=== PATIENT | male | born 1950 | race Two or more races ===

== ENCOUNTER 2017-07-27 09:46 | Inpatient (IN) | payer OTHER ==
[2017-07-27 12:24] VITALS: BMI 22.6
--- NOTE | 2017-07-27 14:40 | PN ---
[facility] Progress Note Note: pt was c/o chest pain radiating down his left arm. BP 135/80, HR 66 rr 18. Pt was at [facility] a week ago for same reason. Pt is a poor historian. Report given to Dr. Terrence Del Valle for evaluation at [facility] [place]
--- NOTE | 2017-07-27 20:46 | HP ---
Admission [facility] Chief Complaint: i want to go to rehab Allergies/Adverse Reactions: Allergies Allergy/AdvReac Type Severity Reaction Status Date / Time No Known Allergies Allergy Verified 07/27/17 15:05 History of Present Illness: 66 years old male with long history of opiate nicotine dependence has arthritis gerd hypertension bph, hyperlipidemia on methadone maintenance program 70 mg po daily ambulate with cane x 1-2 years due to weakness of left leg is admitted to rehab Exam Limitations: No Limitations - Ebola screening Have you traveled outside of the country in the last 21 days: No Have you had contact with anyone from an Ebola affected area: No Have you been sick,other than usual withdrawal symptoms: No Do you have a fever: No - Review of Systems Constitutional: Loss of Appetite, Unintentional Wgt. Loss EENT: reports: No Symptoms Reported Respiratory: reports: Cough, SOB with Exertion Cardiac: reports: Other (chronic chest muscle wall spasm) GI: reports: No Symptoms Reported : reports: Urgency Musculoskeletal: reports: Back Pain (x months from chest wall to back muscle spasm) Integumentary: reports: Change in Color (both inner elbows) Neuro: reports: No Symptoms reported Endocrine: reports: No Symptoms Reported Hematology: reports: No Symptoms Reported Psychiatric: reports: Judgement Intact, Mood/Affect Appropiate, Orientated x3 Other Systems: Reviewed and Negative Patient History - Patient Medical History Hx Anemia: No Hx Asthma: No Hx Chronic Obstructive Pulmonary Disease (COPD): No Hx Cancer: No Hx Cardiac Disorders: No Hx Congestive Heart Failure: No Hx Hypertension: Yes Hx Hypercholesterolemia: No Hx Pacemaker: No HX Cerebrovascular Accident: No Hx Seizures: No Hx Dementia: No Hx Diabetes: No Hx Gastrointestinal Disorders: Yes (GERD) Hx Liver Disease: No Hx Genitourinary Disorders: No Hx Sexually Transmitted Disorders: No Hx Renal Disease (ESRD): No Hx Thyroid Disease: No Hx Human Immunodeficiency Virus (HIV): No Hx Hepatitis C: No Hx Depression: No Hx Suicide Attempt: No Hx Bipolar Disorder: No Hx Schizophrenia: No - Patient Surgical History Past Surgical History: Yes Hx Cholecystectomy: Yes (2006) Hx Orthopedic Surgery: Yes (bone graft 2002 left hip to left jaw) Anesthesia Reaction: No - PPD History Previous Implant?: Yes Documented Results: Negative w/o proof Implanted On Prior [facility] Admission?: No PPD to be Administered?: Yes - Smoking Cessation Smoking history: Current every day smoker Have you smoked in the past 12 months: Yes Aproximately how many cigarettes per day: 1 Cigars Per Day: 0 Hx Chewing Tobacco Use: No Initiated information on smoking cessation: Yes 'Breaking Loose' booklet given: 07/27/17 - Substance & Tx. History Hx Alcohol Use: No Hx Substance Use: Yes Substance Use Type: Heroin Hx Substance Use Treatment: Yes (2014) - Substances Abused Heroin Route: Injection Frequency: Daily Amount used: 1 bag Age of first use: 16 Date of Last Use: 07/25/17 Family Disease History - Family Disease History Family Disease History: Other: Father (), Mother (), Brother ( /hiv) Admission Physical Exam S - Vital Signs Vital Signs: Vital Signs - 24 hr 07/27/17 12:14 Temperature 96.8 F L Pulse Rate 66 Respiratory 20 Rate Blood Pressure 135/80 - Physical General Appearance: Yes: No Apparent Distress, Appropriately Dressed, Thin HEENTM: Yes: Hearing grossly Normal, Normal ENT Inspection, Normocephalic, Normal Voice Respiratory: Yes: Chest Non-Tender, Lungs Clear, Normal Breath Sounds, No Respiratory Distress, No Accessory Muscle Use Neck: Yes: Supple, Trachea in good position Breast: Yes: Breasts Symetrical Cardiology: Yes: Regular Rhythm, Regular Rate, S1, S2 Abdominal: Yes: Normal Bowel Sounds, Non Tender, Soft Genitourinary: Yes: Uregency Back: Yes: Normal Inspection Musculoskeletal: Yes: Gait Steady (cane), Back pain Extremities: Yes: Non-Tender, Other (iv heroin both upper extremity) Neurological: Yes: Fully Oriented, Alert, Motor Strength 5/5, Normal Mood/Affect , Normal Response Integumentary: Yes: Warm, Track Narayanan Lymphatic: Yes: Within Normal Limits - Diagnostic (1) Methadone maintenance therapy patient Current Visit: Yes Status: Chronic Comment: 70 mg verificatin pending (2) Arthritis Current Visit: Yes Status: Chronic (3) GERD (gastroesophageal reflux disease) Current Visit: Yes Status: Chronic Qualifiers: Esophagitis presence: without esophagitis Qualified Code(s): K21.9 - Gastro -esophageal reflux disease without esophagitis (4) Use of cane as ambulatory aid Current Visit: Yes Status: Chronic (5) Weight loss Current Visit: Yes Status: Acute (6) Muscle spasm Current Visit: Yes Status: Chronic (7) Chronic back pain Current Visit: Yes Status: Chronic Qualifiers: Back pain location: low back pain Back pain laterality: bilateral Sciatica presence: without sciatica Qualified Code(s): M54.5 - Low back pain; G89.29 - Other chronic pain; G89.29 - Other chronic pain (8) Nicotine dependence Current Visit: Yes Status: Acute Qualifiers: Nicotine product type: cigarettes Substance use status: in withdrawal Qualified Code(s): F17.213 - Nicotine dependence, cigarettes, with withdrawal (9) Hypertension Current Visit: Yes Status: Chronic Qualifiers: Hypertension type: essential hypertension Qualified Code(s): I10 - Essential (primary) hypertension Cleared for Admission [facility] - Detox or Rehab [facility] Level of Care: Observation Bed Detox Regimen/Protocol: Not Applicable Claeared for Rehab Admission: Yes [facility] Breath Alcohol Content Breath Alcohol Content: 0 Vital Signs - Vital Signs Vital Signs Refused: No Urine Drug Screen - Control Is Test Valid: Yes - Results Drug Screen Negative: No Urine Drug Screen Results: BZO-Benzodiazepines, MTD-Methadone Inpatient Rehab Admission - Initial Determination Are CD services needed?: Yes Free of communicable disease: Yes Not in need of hospitalization: Yes - Rehab Admission Criteria Previous failed treatment: Yes Poor recovery environment: Yes Comorbidities: Yes Lacks judgement: No Patient is meeting Inpatient Rehab admission criteria:: Yes
[2017-07-27] MEDS ORDERED: MENTHOL/PHENOL 1 EACH UD MM PRN (20:53)
[2017-07-27] MEDS ORDERED: guaiFENesin/D-METHORPHAN HB 10 ML UNIT-DOSE CUPS PO PRN (20:53)
[2017-07-27] MEDS ORDERED: LOPERAMIDE HCL 2 MG CAPSULE PO PRN (20:53)
[2017-07-27] MEDS ORDERED: MAGNESIUM CITRATE 300 ML BOTTLE PO PRN (20:53)
[2017-07-27] MEDS ORDERED: P-EPHED 60MG/TRIPROLIDI 2.5MG TABLET PO PRN (20:53)
[2017-07-27] MEDS ORDERED: NICOTINE POLACRILEX 2 MG GUM BC PRN (20:53)
[2017-07-27] MEDS ORDERED: MAG HYDROX/AL HYDROX/SIMETH 30 ML UNIT-DOSE CUP PO PRN (20:53)
[2017-07-27 23:15] LABS: URINE APPEARANCE CLEAR; URINE BILIRUBIN NEGATIVE (NEGATIVE); URINE BLOOD NEGATIVE (NEGATIVE); URINE COLOR YELLOW; URINE GLUCOSE (UA) NEGATIVE (NEGATIVE); URINE KETONE NEGATIVE (NEGATIVE); URINE NITRITE NEGATIVE (NEGATIVE); URINE UROBILINOGEN NEGATIVE mg/dL (0.2-1.0)
[2017-07-27 23:16] LABS: URINE PROTEIN 2+ (NEGATIVE)
[2017-07-27 23:18] LABS: EPI CELLS RARE /HPF (FEW); URINE MUCUS RARE
[2017-07-27] MEDS: GABAPENTIN 300 MG CAPSULE (FP) PO SCH (23:21)
[2017-07-27] MEDS: NAPROXEN 500 MG TABLET (FP) PO PRN (23:21)
[2017-07-27] MEDS: TAMSULOSIN HCL 0.4 MG CAP.ER.24H (FP) PO SCH (23:22)
[2017-07-27] MEDS: BACLOFEN 10 MG TABLET (FP) PO SCH ×2 (23:22)
[2017-07-27] MEDS: RANITIDINE HCL 150 MG TABLET (FP) PO SCH ×2 (23:22→23:23)
[2017-07-27] MEDS: THIAMINE HCL 100 MG TABLET (FP) PO SCH (23:22)
[2017-07-27] MEDS ORDERED: TUBERCULIN PPD 5 TU/0.1ML VIAL ID ONE (23:26)
[2017-07-28] MEDS: GABAPENTIN 300 MG CAPSULE (FP) PO SCH ×3 (06:03→21:06)
[2017-07-28] MEDS: BACLOFEN 10 MG TABLET (FP) PO SCH ×3 (06:03→21:06)
--- NOTE | 2017-07-28 06:07 | HP ---
Psychiatrist Admission - Data Date of interview: 07/28/17 Admission source: [facility] Identifying data: This is the first [facility] admission for this 66 years old single male, father of a 45 years old daughter, unemployed on SSD, domiciled living with his sister Medical History: Significant for hypertension, hyperlipidemia, arthritis, GERD, BPH and history of surgery for bone graft left hip to left jaw. Patient is on methadone 70 mg/day. Smokes 1 cigarette daily Psychiatric History: Denies history of previous psychiatric treatment. However, he is prescribed Remeron for sleep and Ativan for anxiety by his primary care physician Physical/Sexual Abuse/Trauma History: Denies history of verbal, physical or sexual abuse as well as DV relationship Additional Comment: Reports history of 3-4 previous arrests including one felony conviction. Denies being on parole/probation at present Vital Signs: Vital Signs - 24 hr 07/27/17 07/27/17 07/28/17 12:14 22:47 00:30 Temperature 96.8 F L Pulse Rate 66 58 L Respiratory 20 18 18 Rate Blood Pressure 135/80 140/71 07/28/17 03:30 Temperature Pulse Rate Respiratory 18 Rate Blood Pressure Allergies/Adverse Reactions: Allergies Allergy/AdvReac Type Severity Reaction Status Date / Time No Known Allergies Allergy Verified 07/27/17 15:05 Date of last physical exam: 07/27/17 Concur with the findings of this exam: Yes - Substance Abuse/Tx History Hx Alcohol Use: Yes Hx Substance Use: Yes Substance Use Type: Heroin (Started using heroin at age 16, consumes one bag daily. Last used on 07/25/17) Hx Substance Use Treatment: Yes (Currently atteds [facility]. 3 previous inpt detox. First inpt rehab) Mental Status Exam - Mental Status Exam Alert and Oriented to: Time, Place, Person Cognitive Function: Fair Patient Appearance: Well Groomed Mood: Depressed (mildly) Affect: Normal Range Patient Behavior: Cooperative Speech Pattern: Clear Voice Loudness: Normal Thought Process: Intact, Goal Oriented Hallucinations: Denies Suicidal Ideation: Denies Homicidal Ideation: Denies Insight/Judgement: Fair Sleep: Poorly Appetite: Poor Muscle strength/Tone: Normal Gait/Station: Normal Psychiatric Findings - Problem List ([place] 1, 2,3) (1) Opioid dependence Current Visit: Yes Status: Acute (2) Opioid dependence on agonist therapy Current Visit: Yes Status: Acute (3) Nicotine dependence Current Visit: Yes Status: Acute Qualifiers: Nicotine product type: cigarettes Substance use status: in withdrawal Qualified Code(s): F17.213 - Nicotine dependence, cigarettes, with withdrawal (4) Substance induced mood disorder Current Visit: Yes Status: Acute (5) Substance-induced sleep disorder Current Visit: Yes Status: Acute (6) Arthritis Current Visit: Yes Status: Chronic (7) Chronic back pain Current Visit: Yes Status: Chronic Qualifiers: Back pain location: low back pain Back pain laterality: bilateral Sciatica presence: without sciatica Qualified Code(s): M54.5 - Low back pain; G89.29 - Other chronic pain; G89.29 - Other chronic pain (8) GERD (gastroesophageal reflux disease) Current Visit: Yes Status: Chronic Qualifiers: Esophagitis presence: without esophagitis Qualified Code(s): K21.9 - Gastro -esophageal reflux disease without esophagitis (9) Hypertension Current Visit: Yes Status: Chronic Qualifiers: Hypertension type: essential hypertension Qualified Code(s): I10 - Essential (primary) hypertension - Initial Treatment Plan Initial Treatment Plan: 1) Continue Remeron 45 mg po HS for insomnia. 2) Monitor progress
[2017-07-28] MEDS: ACETAMINOPHEN 325 MG TABLET (FP) PO PRN ×2 (06:35→21:07)
[2017-07-28] MEDS ORDERED: METHADONE HCL 10 MG TABLET PO SCH (08:00)
[2017-07-28] MEDS ORDERED: METHADONE 40 MG, METHADONE 30 MG PO ONE (08:30)
[2017-07-28] MEDS ORDERED: METHADONE HCL 40 MG DISPERSABLE TABLET ONE (08:34)
[2017-07-28] MEDS ORDERED: METHADONE HCL 10 MG TABLET ONE (08:34)
[2017-07-28] MEDS: RANITIDINE HCL 150 MG TABLET (FP) PO SCH ×2 (09:35→21:06)
[2017-07-28] MEDS: amLODIPine BESYLATE 5 MG TABLET (FP) PO SCH (09:35)
[2017-07-28] MEDS: ATORVASTATIN CA 40 MG TABLET (FP) PO SCH (09:35)
[2017-07-28] MEDS: ASPIRIN 81 MG CHEWABLE TABLETS PO SCH (09:35)
[2017-07-28] MEDS: NICOTINE 14 MG/24 HOURS TOPICAL PATCH TD SCH (09:35)
[2017-07-28] MEDS: PRENATAL VITAMINS W/ FOLIC ACID TABLET (FP) PO SCH (09:35)
[2017-07-28] MEDS: NAPROXEN 500 MG TABLET (FP) PO PRN (09:36)
[2017-07-28 11:02] LABS: URINE LEUK ESTERASE Negative (NEGATIVE)
[2017-07-28 14:01] LABS: HEMATOCRIT 34.8 % (35.4-49); HEMOGLOBIN 11.3 GM/dL (11.7-16.9); MCH 31.4 pg (25.7-33.7); MCHC 32.6 g/dl (32.0-35.9); MEAN CELL VOLUME 96.5 fl (80-96); MEAN PLT VOLUME 10.7 fl (7.5-11.1); PLATELET COUNT 62 K/MM3 (134-434); RBC 3.61 M/mm3 (4.00-5.60); RDW 16.6 % (11.9-15.9); WHITE BLOOD COUNT 3.6 K/mm3 (4.0-10.0)
[2017-07-28 14:15] LABS: ANION GAP 8 (8-16); BILIRUBIN,TOTAL 0.4 mg/dL (0.2-1.0); CALCIUM 10.2 mg/dL (8.5-10.1); CHLORIDE 106 mmol/L (98-107); CO2 30 mmol/L (21-32); CREATININE 1.1 mg/dL (0.7-1.3); POTASSIUM 3.8 mmol/L (3.5-5.1); SGPT/ALT 20 U/L (12-78); SODIUM 144 mmol/L (136-145)
[2017-07-28 14:21] LABS: ALBUMIN 3.7 g/dl (3.4-5.0); ALK PHOS 83 U/L (45-117); BLOOD UREA NITROGEN 17 mg/dL (7-18); GLUCOSE,RANDOM 119 mg/dL (74-106); SGOT/AST 21 U/L (15-37); TOT PROT 7.2 g/dl (6.4-8.2)
[2017-07-28] MEDS: TAMSULOSIN HCL 0.4 MG CAP.ER.24H (FP) PO SCH (21:06)
[2017-07-28] MEDS: THIAMINE HCL 100 MG TABLET (FP) PO SCH (21:06)
[2017-07-28] MEDS: MIRTAZAPINE 15 MG TABLET (FP) PO SCH (22:17)
[2017-07-29] MEDS: ACETAMINOPHEN 325 MG TABLET (FP) PO PRN ×3 (02:20→21:08)
[2017-07-29] MEDS ORDERED: METHADONE HCL 40 MG DISPERSABLE TABLET ONE (04:01)
[2017-07-29] MEDS ORDERED: METHADONE HCL 10 MG TABLET ONE (04:01)
[2017-07-29] MEDS: BACLOFEN 10 MG TABLET (FP) PO SCH ×3 (06:31→21:06)
[2017-07-29] MEDS: GABAPENTIN 300 MG CAPSULE (FP) PO SCH ×3 (06:32→21:09)
[2017-07-29] MEDS: METHADONE 40 MG, METHADONE 30 MG PO SCH (06:32)
[2017-07-29] MEDS: PRENATAL VITAMINS W/ FOLIC ACID TABLET (FP) PO SCH (09:40)
[2017-07-29] MEDS: ATORVASTATIN CA 40 MG TABLET (FP) PO SCH (09:41)
[2017-07-29] MEDS: RANITIDINE HCL 150 MG TABLET (FP) PO SCH ×2 (09:41→21:05)
[2017-07-29] MEDS: NICOTINE 14 MG/24 HOURS TOPICAL PATCH TD SCH (09:41)
[2017-07-29] MEDS: ASPIRIN 81 MG CHEWABLE TABLETS PO SCH (09:41)
[2017-07-29] MEDS: amLODIPine BESYLATE 5 MG TABLET (FP) PO SCH (09:41)
[2017-07-29] MEDS: NAPROXEN 500 MG TABLET (FP) PO PRN (09:42)
[2017-07-29] MEDS: TAMSULOSIN HCL 0.4 MG CAP.ER.24H (FP) PO SCH (21:05)
[2017-07-29] MEDS: THIAMINE HCL 100 MG TABLET (FP) PO SCH (21:05)
[2017-07-29] MEDS: MIRTAZAPINE 15 MG TABLET (FP) PO SCH (21:06)
[2017-07-30] MEDS ORDERED: METHADONE HCL 40 MG DISPERSABLE TABLET ONE (02:39)
[2017-07-30] MEDS ORDERED: METHADONE HCL 10 MG TABLET ONE (02:39)
[2017-07-30] MEDS: BACLOFEN 10 MG TABLET (FP) PO SCH ×3 (06:10→21:37)
[2017-07-30] MEDS: GABAPENTIN 300 MG CAPSULE (FP) PO SCH ×3 (06:10→21:37)
[2017-07-30] MEDS: METHADONE 40 MG, METHADONE 30 MG PO SCH (06:10)
[2017-07-30] MEDS: PRENATAL VITAMINS W/ FOLIC ACID TABLET (FP) PO SCH (09:39)
[2017-07-30] MEDS: RANITIDINE HCL 150 MG TABLET (FP) PO SCH ×2 (09:39→21:37)
[2017-07-30] MEDS: amLODIPine BESYLATE 5 MG TABLET (FP) PO SCH (09:40)
[2017-07-30] MEDS: NICOTINE 14 MG/24 HOURS TOPICAL PATCH TD SCH (09:40)
[2017-07-30] MEDS: ASPIRIN 81 MG CHEWABLE TABLETS PO SCH (09:40)
[2017-07-30] MEDS: ATORVASTATIN CA 40 MG TABLET (FP) PO SCH (09:40)
[2017-07-30] MEDS: ACETAMINOPHEN 325 MG TABLET (FP) PO PRN (09:41)
[2017-07-30] MEDS: MIRTAZAPINE 15 MG TABLET (FP) PO SCH (21:37)
[2017-07-30] MEDS: TAMSULOSIN HCL 0.4 MG CAP.ER.24H (FP) PO SCH (21:37)
[2017-07-30] MEDS: THIAMINE HCL 100 MG TABLET (FP) PO SCH (21:37)
[2017-07-31] MEDS ORDERED: METHADONE HCL 10 MG TABLET ONE (04:48)
[2017-07-31] MEDS ORDERED: METHADONE HCL 40 MG DISPERSABLE TABLET ONE (04:48)
[2017-07-31] MEDS: GABAPENTIN 300 MG CAPSULE (FP) PO SCH ×3 (05:58→21:06)
[2017-07-31] MEDS: METHADONE 40 MG, METHADONE 30 MG PO SCH (05:58)
[2017-07-31] MEDS: BACLOFEN 10 MG TABLET (FP) PO SCH ×3 (05:58→21:07)
--- NOTE | 2017-07-31 06:44 | EKG ---
Test Reason : Blood Pressure : / mmHG Vent. Rate : 059 BPM Atrial Rate : 059 BPM P-R Int : 168 ms QRS Dur : 088 ms QT Int : 454 ms P-R-T Axes : 052 063 052 degrees QTc Int : 449 ms SINUS BRADYCARDIA OTHERWISE NORMAL ECG WHEN COMPARED WITH ECG OF 27-JUL-2017 15:29, NO SIGNIFICANT CHANGE WAS FOUND Confirmed by MD Andrade Daniel ([id number]) on 07/28/2017 3:00:51 PM Also confirmed by MD Andrade Daniel [id number]), sports editor MARCIO GONZALEZ ([id number]) on 07/31/2017 6:43:42 AM Referred By: Confirmed By:Marcio Andrade MD
[2017-07-31] MEDS: PRENATAL VITAMINS W/ FOLIC ACID TABLET (FP) PO SCH (09:40)
[2017-07-31] MEDS: ASPIRIN 81 MG CHEWABLE TABLETS PO SCH (09:40)
[2017-07-31] MEDS: amLODIPine BESYLATE 5 MG TABLET (FP) PO SCH (09:40)
[2017-07-31] MEDS: ATORVASTATIN CA 40 MG TABLET (FP) PO SCH (09:40)
[2017-07-31] MEDS: NICOTINE 14 MG/24 HOURS TOPICAL PATCH TD SCH (09:41)
[2017-07-31] MEDS: RANITIDINE HCL 150 MG TABLET (FP) PO SCH ×2 (09:42→21:07)
--- NOTE | 2017-07-31 13:50 | PN ---
[facility] Progress Note (SOAP) Subjective: c/o sore thorat, chest pain same as when admitted , congestion, cough, fatigue Objective: 07/31/17 13:48 Vital Signs - 24 hr 07/31/17 07/31/17 07/31/17 00:30 03:30 06:50 Temperature 98.3 F Pulse Rate 66 Respiratory 18 18 16 Rate Blood Pressure 138/80 07/31/17 10:00 Temperature Pulse Rate 61 Respiratory 18 Rate Blood Pressure 124/74 no fever rigors or chilss, mild erytehma throat, no LN Laboratory Tests 07/27/17 07/28/17 07/28/17 23:00 10:40 10:40 WBC 3.6 L RBC 3.61 L Hgb 11.3 L D Hct 34.8 L D MCV 96.5 H MCH 31.4 MCHC 32.6 RDW 16.6 H Plt Count 62 L MPV 10.7 D Sodium 144 Potassium 3.8 Chloride 106 Carbon Dioxide 30 Anion Gap 8 BUN 17 Creatinine 1.1 D Creat Clearance w eGFR > 60 Random Glucose 119 H D Calcium 10.2 H Total Bilirubin 0.4 AST 21 ALT 20 Alkaline Phosphatase 83 Total Protein 7.2 Albumin 3.7 Urine Color Yellow Urine Appearance Clear Urine pH 5.0 Ur Specific [place] 1.028 Urine Protein 2+ H Urine Glucose (UA) Negative Urine Ketones Negative Urine Blood Negative Urine Nitrite Negative Urine Bilirubin Negative Urine Urobilinogen Negative Ur Leukocyte Esterase Negative Urine WBC (Auto) 1 Urine RBC (Auto) 1 Ur Epithelial Cells Rare Urine Mucus Rare RPR Titer 07/28/17 10:40 WBC RBC Hgb Hct MCV MCH MCHC RDW Plt Count MPV Sodium Potassium Chloride Carbon Dioxide Anion Gap BUN Creatinine Creat Clearance w eGFR Random Glucose Calcium Total Bilirubin AST ALT Alkaline Phosphatase Total Protein Albumin Urine Color Urine Appearance Urine pH Ur Specific [place] Urine Protein Urine Glucose (UA) Urine Ketones Urine Blood Urine Nitrite Urine Bilirubin Urine Urobilinogen Ur Leukocyte Esterase Urine WBC (Auto) Urine RBC (Auto) Ur Epithelial Cells Urine Mucus RPR Titer Nonreactive mild macrocytic anemia, elevated glucose Assessment: 07/31/17 13:49 urti/viral phryngitis with atypical chest pain, dnaprosyn, magic mouth wash, bedrest, fluids.
[2017-07-31] MEDS ORDERED: PANTOPRAZOLE 40 MG TABLET (FP) PO SCH (14:00)
[2017-07-31] MEDS: NAPROXEN 500 MG TABLET (FP) PO SCH ×2 (15:14→21:07)
[2017-07-31] MEDS: MAG HYDROX/ALH/SMC/DPHA/LIDO 240 ML MOUTHWASH MM SCH ×2 (17:06→23:43)
[2017-07-31] MEDS: THIAMINE HCL 100 MG TABLET (FP) PO SCH (21:06)
[2017-07-31] MEDS: MIRTAZAPINE 15 MG TABLET (FP) PO SCH (21:06)
[2017-07-31] MEDS: TAMSULOSIN HCL 0.4 MG CAP.ER.24H (FP) PO SCH (21:07)
[2017-08-01] MEDS ORDERED: METHADONE HCL 40 MG DISPERSABLE TABLET ONE (04:10)
[2017-08-01] MEDS ORDERED: METHADONE HCL 10 MG TABLET ONE (04:10)
[2017-08-01] MEDS: GABAPENTIN 300 MG CAPSULE (FP) PO SCH ×3 (06:33→21:09)
[2017-08-01] MEDS: BACLOFEN 10 MG TABLET (FP) PO SCH ×3 (06:33→21:09)
[2017-08-01] MEDS: METHADONE 40 MG, METHADONE 30 MG PO SCH (06:33)
[2017-08-01] MEDS: MAG HYDROX/ALH/SMC/DPHA/LIDO 240 ML MOUTHWASH MM SCH ×4 (06:33→23:49)
[2017-08-01] MEDS: NAPROXEN 500 MG TABLET (FP) PO SCH ×2 (10:25→21:09)
[2017-08-01] MEDS: PRENATAL VITAMINS W/ FOLIC ACID TABLET (FP) PO SCH (10:25)
[2017-08-01] MEDS: ATORVASTATIN CA 40 MG TABLET (FP) PO SCH (10:25)
[2017-08-01] MEDS: RANITIDINE HCL 150 MG TABLET (FP) PO SCH ×2 (10:25→21:08)
[2017-08-01] MEDS: ASPIRIN 81 MG CHEWABLE TABLETS PO SCH (10:25)
[2017-08-01] MEDS: NICOTINE 14 MG/24 HOURS TOPICAL PATCH TD SCH (10:25)
[2017-08-01] MEDS: amLODIPine BESYLATE 5 MG TABLET (FP) PO SCH (10:25)
[2017-08-01] MEDS: MIRTAZAPINE 15 MG TABLET (FP) PO SCH (21:08)
[2017-08-01] MEDS: TAMSULOSIN HCL 0.4 MG CAP.ER.24H (FP) PO SCH (21:09)
[2017-08-01] MEDS: THIAMINE HCL 100 MG TABLET (FP) PO SCH (21:09)
[2017-08-02] MEDS ORDERED: METHADONE HCL 40 MG DISPERSABLE TABLET ONE (04:06)
[2017-08-02] MEDS ORDERED: METHADONE HCL 10 MG TABLET ONE (04:06)
[2017-08-02] MEDS: MAG HYDROX/ALH/SMC/DPHA/LIDO 240 ML MOUTHWASH MM SCH ×4 (06:01→23:03)
[2017-08-02] MEDS: BACLOFEN 10 MG TABLET (FP) PO SCH ×3 (06:01→21:02)
[2017-08-02] MEDS: GABAPENTIN 300 MG CAPSULE (FP) PO SCH ×3 (06:01→21:02)
[2017-08-02] MEDS: METHADONE 40 MG, METHADONE 30 MG PO SCH (06:01)
[2017-08-02] MEDS: NICOTINE 14 MG/24 HOURS TOPICAL PATCH TD SCH (09:42)
[2017-08-02] MEDS: ASPIRIN 81 MG CHEWABLE TABLETS PO SCH (09:43)
[2017-08-02] MEDS: PRENATAL VITAMINS W/ FOLIC ACID TABLET (FP) PO SCH (09:43)
[2017-08-02] MEDS: ATORVASTATIN CA 40 MG TABLET (FP) PO SCH (09:43)
[2017-08-02] MEDS: amLODIPine BESYLATE 5 MG TABLET (FP) PO SCH (09:43)
[2017-08-02] MEDS: NAPROXEN 500 MG TABLET (FP) PO SCH ×2 (09:43→21:02)
[2017-08-02] MEDS: RANITIDINE HCL 150 MG TABLET (FP) PO SCH ×2 (09:43→21:02)
[2017-08-02] MEDS: THIAMINE HCL 100 MG TABLET (FP) PO SCH (21:02)
[2017-08-02] MEDS: TAMSULOSIN HCL 0.4 MG CAP.ER.24H (FP) PO SCH (21:02)
[2017-08-02] MEDS: MIRTAZAPINE 15 MG TABLET (FP) PO SCH (21:02)
[2017-08-03] MEDS ORDERED: METHADONE HCL 40 MG DISPERSABLE TABLET ONE (03:15)
[2017-08-03] MEDS ORDERED: METHADONE HCL 10 MG TABLET ONE (03:15)
[2017-08-03] MEDS: METHADONE 40 MG, METHADONE 30 MG PO SCH (06:56)
[2017-08-03] MEDS: BACLOFEN 10 MG TABLET (FP) PO SCH ×3 (06:57→21:02)
[2017-08-03] MEDS: GABAPENTIN 300 MG CAPSULE (FP) PO SCH ×3 (06:57→21:02)
[2017-08-03] MEDS: MAG HYDROX/ALH/SMC/DPHA/LIDO 240 ML MOUTHWASH MM SCH ×4 (06:58→23:59)
[2017-08-03] MEDS: ASPIRIN 81 MG CHEWABLE TABLETS PO SCH (09:31)
[2017-08-03] MEDS: NAPROXEN 500 MG TABLET (FP) PO SCH ×2 (09:31→21:02)
[2017-08-03] MEDS: PRENATAL VITAMINS W/ FOLIC ACID TABLET (FP) PO SCH (09:31)
[2017-08-03] MEDS: ATORVASTATIN CA 40 MG TABLET (FP) PO SCH (09:31)
[2017-08-03] MEDS: amLODIPine BESYLATE 5 MG TABLET (FP) PO SCH (09:31)
[2017-08-03] MEDS: RANITIDINE HCL 150 MG TABLET (FP) PO SCH ×2 (09:31→21:02)
[2017-08-03] MEDS: NICOTINE 14 MG/24 HOURS TOPICAL PATCH TD SCH (09:32)
[2017-08-03] MEDS: CLOTRIMAZOLE 10 MG TROCHE (FP) PO SCH ×2 (17:03→21:01)
[2017-08-03] MEDS: THIAMINE HCL 100 MG TABLET (FP) PO SCH (21:01)
[2017-08-03] MEDS: MIRTAZAPINE 15 MG TABLET (FP) PO SCH (21:01)
[2017-08-03] MEDS: TAMSULOSIN HCL 0.4 MG CAP.ER.24H (FP) PO SCH (21:02)
[2017-08-04] MEDS ORDERED: METHADONE HCL 40 MG DISPERSABLE TABLET ONE (04:14)
[2017-08-04] MEDS ORDERED: METHADONE HCL 10 MG TABLET ONE (04:14)
[2017-08-04] MEDS: GABAPENTIN 300 MG CAPSULE (FP) PO SCH ×3 (06:04→21:05)
[2017-08-04] MEDS: CLOTRIMAZOLE 10 MG TROCHE (FP) PO SCH ×5 (06:04→22:19)
[2017-08-04] MEDS: METHADONE 40 MG, METHADONE 30 MG PO SCH (06:04)
[2017-08-04] MEDS: BACLOFEN 10 MG TABLET (FP) PO SCH ×3 (06:04→21:05)
[2017-08-04] MEDS: MAG HYDROX/ALH/SMC/DPHA/LIDO 240 ML MOUTHWASH MM SCH ×3 (06:11→18:07)
[2017-08-04] MEDS: PRENATAL VITAMINS W/ FOLIC ACID TABLET (FP) PO SCH (09:27)
[2017-08-04] MEDS: ASPIRIN 81 MG CHEWABLE TABLETS PO SCH (09:27)
[2017-08-04] MEDS: RANITIDINE HCL 150 MG TABLET (FP) PO SCH ×2 (09:28→21:05)
[2017-08-04] MEDS: amLODIPine BESYLATE 5 MG TABLET (FP) PO SCH (09:28)
[2017-08-04] MEDS: ATORVASTATIN CA 40 MG TABLET (FP) PO SCH (09:28)
[2017-08-04] MEDS: NAPROXEN 500 MG TABLET (FP) PO SCH ×2 (09:28→21:05)
[2017-08-04] MEDS: NICOTINE 14 MG/24 HOURS TOPICAL PATCH TD SCH (09:29)
[2017-08-04] MEDS: TAMSULOSIN HCL 0.4 MG CAP.ER.24H (FP) PO SCH (21:04)
[2017-08-04] MEDS: THIAMINE HCL 100 MG TABLET (FP) PO SCH (21:05)
[2017-08-04] MEDS: MIRTAZAPINE 15 MG TABLET (FP) PO SCH (21:05)
[2017-08-05] MEDS ORDERED: METHADONE HCL 10 MG TABLET ONE (04:27)
[2017-08-05] MEDS ORDERED: METHADONE HCL 40 MG DISPERSABLE TABLET ONE (04:27)
[2017-08-05] MEDS: BACLOFEN 10 MG TABLET (FP) PO SCH ×3 (06:02→21:10)
[2017-08-05] MEDS: METHADONE 40 MG, METHADONE 30 MG PO SCH (06:02)
[2017-08-05] MEDS: GABAPENTIN 300 MG CAPSULE (FP) PO SCH ×3 (06:02→21:10)
[2017-08-05] MEDS: MAG HYDROX/ALH/SMC/DPHA/LIDO 240 ML MOUTHWASH MM SCH ×5 (06:03→23:43)
[2017-08-05] MEDS: CLOTRIMAZOLE 10 MG TROCHE (FP) PO SCH ×5 (06:03→21:10)
[2017-08-05] MEDS: NAPROXEN 500 MG TABLET (FP) PO SCH ×2 (09:41→21:10)
[2017-08-05] MEDS: ASPIRIN 81 MG CHEWABLE TABLETS PO SCH (09:41)
[2017-08-05] MEDS: ATORVASTATIN CA 40 MG TABLET (FP) PO SCH (09:41)
[2017-08-05] MEDS: RANITIDINE HCL 150 MG TABLET (FP) PO SCH ×2 (09:41→21:10)
[2017-08-05] MEDS: amLODIPine BESYLATE 5 MG TABLET (FP) PO SCH (09:41)
[2017-08-05] MEDS: PRENATAL VITAMINS W/ FOLIC ACID TABLET (FP) PO SCH (09:41)
[2017-08-05] MEDS: NICOTINE 14 MG/24 HOURS TOPICAL PATCH TD SCH (09:41)
[2017-08-05] MEDS: THIAMINE HCL 100 MG TABLET (FP) PO SCH (21:10)
[2017-08-05] MEDS: MIRTAZAPINE 15 MG TABLET (FP) PO SCH (21:10)
[2017-08-05] MEDS: TAMSULOSIN HCL 0.4 MG CAP.ER.24H (FP) PO SCH (21:10)
[2017-08-06] MEDS ORDERED: METHADONE HCL 40 MG DISPERSABLE TABLET ONE (04:24)
[2017-08-06] MEDS ORDERED: METHADONE HCL 10 MG TABLET ONE (04:24)
[2017-08-06] MEDS: BACLOFEN 10 MG TABLET (FP) PO SCH ×3 (05:52→21:02)
[2017-08-06] MEDS: GABAPENTIN 300 MG CAPSULE (FP) PO SCH ×3 (05:52→21:02)
[2017-08-06] MEDS: CLOTRIMAZOLE 10 MG TROCHE (FP) PO SCH ×5 (05:52→21:02)
[2017-08-06] MEDS: MAG HYDROX/ALH/SMC/DPHA/LIDO 240 ML MOUTHWASH MM SCH ×2 (05:53→12:28)
[2017-08-06] MEDS: METHADONE 40 MG, METHADONE 30 MG PO SCH (05:53)
[2017-08-06] MEDS: PRENATAL VITAMINS W/ FOLIC ACID TABLET (FP) PO SCH (09:48)
[2017-08-06] MEDS: amLODIPine BESYLATE 5 MG TABLET (FP) PO SCH (09:49)
[2017-08-06] MEDS: ATORVASTATIN CA 40 MG TABLET (FP) PO SCH (09:49)
[2017-08-06] MEDS: RANITIDINE HCL 150 MG TABLET (FP) PO SCH ×2 (09:49→21:02)
[2017-08-06] MEDS: NAPROXEN 500 MG TABLET (FP) PO SCH ×2 (09:49→21:02)
[2017-08-06] MEDS: ASPIRIN 81 MG CHEWABLE TABLETS PO SCH (09:49)
[2017-08-06] MEDS: NICOTINE 14 MG/24 HOURS TOPICAL PATCH TD SCH (09:49)
[2017-08-06] MEDS ORDERED: PT OWN MED DRAWER 7, Y5N ONE ×2 (12:27→14:31)
[2017-08-06] MEDS: MENTHOL/PHENOL 1 EACH UD MM SCH ×2 (12:30→18:25)
[2017-08-06] MEDS: THIAMINE HCL 100 MG TABLET (FP) PO SCH (21:02)
[2017-08-06] MEDS: TAMSULOSIN HCL 0.4 MG CAP.ER.24H (FP) PO SCH (21:02)
[2017-08-06] MEDS: MIRTAZAPINE 15 MG TABLET (FP) PO SCH (21:02)
[2017-08-07] MEDS: MENTHOL/PHENOL 1 EACH UD MM SCH ×8 (00:30→23:37)
[2017-08-07] MEDS ORDERED: METHADONE HCL 10 MG TABLET ONE (04:36)
[2017-08-07] MEDS ORDERED: METHADONE HCL 40 MG DISPERSABLE TABLET ONE (04:36)
[2017-08-07] MEDS: MAGNESIUM HYDROX 2400MG/30ML ORAL SUSPENSION 30 ML CUP PO PRN (05:58)
[2017-08-07] MEDS: CLOTRIMAZOLE 10 MG TROCHE (FP) PO SCH ×5 (05:58→21:05)
[2017-08-07] MEDS: BACLOFEN 10 MG TABLET (FP) PO SCH ×3 (05:59→21:04)
[2017-08-07] MEDS: GABAPENTIN 300 MG CAPSULE (FP) PO SCH ×3 (05:59→21:04)
[2017-08-07] MEDS: METHADONE 40 MG, METHADONE 30 MG PO SCH (05:59)
[2017-08-07] MEDS: PRENATAL VITAMINS W/ FOLIC ACID TABLET (FP) PO SCH (09:21)
[2017-08-07] MEDS: ATORVASTATIN CA 40 MG TABLET (FP) PO SCH (09:21)
[2017-08-07] MEDS: amLODIPine BESYLATE 5 MG TABLET (FP) PO SCH (09:21)
[2017-08-07] MEDS: NAPROXEN 500 MG TABLET (FP) PO SCH ×2 (09:21→21:04)
[2017-08-07] MEDS: RANITIDINE HCL 150 MG TABLET (FP) PO SCH ×2 (09:21→21:04)
[2017-08-07] MEDS: ASPIRIN 81 MG CHEWABLE TABLETS PO SCH (09:22)
[2017-08-07] MEDS ORDERED: PT OWN MED DRAWER 7, Y5N ONE ×2 (10:54→15:43)
[2017-08-07] MEDS: NICOTINE 14 MG/24 HOURS TOPICAL PATCH TD SCH (10:56)
[2017-08-07] MEDS: THIAMINE HCL 100 MG TABLET (FP) PO SCH (21:03)
[2017-08-07] MEDS: MIRTAZAPINE 15 MG TABLET (FP) PO SCH (21:03)
[2017-08-07] MEDS: TAMSULOSIN HCL 0.4 MG CAP.ER.24H (FP) PO SCH (21:04)
[2017-08-08] MEDS: ACETAMINOPHEN 325 MG TABLET (FP) PO PRN (04:57)
[2017-08-08] MEDS: MENTHOL/PHENOL 1 EACH UD MM SCH ×5 (04:58→21:19)
[2017-08-08] MEDS ORDERED: METHADONE HCL 10 MG TABLET ONE (05:06)
[2017-08-08] MEDS ORDERED: METHADONE HCL 40 MG DISPERSABLE TABLET ONE (05:06)
[2017-08-08] MEDS: METHADONE 40 MG, METHADONE 30 MG PO SCH (06:32)
[2017-08-08] MEDS: CLOTRIMAZOLE 10 MG TROCHE (FP) PO SCH ×5 (06:33→21:19)
[2017-08-08] MEDS: GABAPENTIN 300 MG CAPSULE (FP) PO SCH ×3 (06:33→21:18)
[2017-08-08] MEDS: BACLOFEN 10 MG TABLET (FP) PO SCH ×3 (06:33→21:18)
[2017-08-08] MEDS: NICOTINE 14 MG/24 HOURS TOPICAL PATCH TD SCH (09:25)
[2017-08-08] MEDS: PRENATAL VITAMINS W/ FOLIC ACID TABLET (FP) PO SCH (09:25)
[2017-08-08] MEDS: ASPIRIN 81 MG CHEWABLE TABLETS PO SCH (09:25)
[2017-08-08] MEDS: amLODIPine BESYLATE 5 MG TABLET (FP) PO SCH (09:25)
[2017-08-08] MEDS: NAPROXEN 500 MG TABLET (FP) PO SCH ×2 (09:25→21:18)
[2017-08-08] MEDS: ATORVASTATIN CA 40 MG TABLET (FP) PO SCH (09:25)
[2017-08-08] MEDS: RANITIDINE HCL 150 MG TABLET (FP) PO SCH ×2 (09:25→21:18)
[2017-08-08] MEDS: TAMSULOSIN HCL 0.4 MG CAP.ER.24H (FP) PO SCH (21:16)
[2017-08-08] MEDS: MIRTAZAPINE 15 MG TABLET (FP) PO SCH (21:17)
[2017-08-08] MEDS: THIAMINE HCL 100 MG TABLET (FP) PO SCH (21:17)
[2017-08-09] MEDS: MENTHOL/PHENOL 1 EACH UD MM SCH ×6 (00:50→21:03)
[2017-08-09] MEDS ORDERED: METHADONE HCL 10 MG TABLET ONE (05:16)
[2017-08-09] MEDS ORDERED: METHADONE HCL 40 MG DISPERSABLE TABLET ONE (05:17)
[2017-08-09] MEDS: BACLOFEN 10 MG TABLET (FP) PO SCH ×3 (05:54→21:03)
[2017-08-09] MEDS: CLOTRIMAZOLE 10 MG TROCHE (FP) PO SCH ×5 (05:54→21:02)
[2017-08-09] MEDS: GABAPENTIN 300 MG CAPSULE (FP) PO SCH ×3 (05:54→21:03)
[2017-08-09] MEDS: METHADONE 40 MG, METHADONE 30 MG PO SCH (05:55)
[2017-08-09] MEDS: ATORVASTATIN CA 40 MG TABLET (FP) PO SCH (09:40)
[2017-08-09] MEDS: NAPROXEN 500 MG TABLET (FP) PO SCH ×2 (09:40→21:03)
[2017-08-09] MEDS: amLODIPine BESYLATE 5 MG TABLET (FP) PO SCH (09:40)
[2017-08-09] MEDS: PRENATAL VITAMINS W/ FOLIC ACID TABLET (FP) PO SCH (09:40)
[2017-08-09] MEDS: NICOTINE 14 MG/24 HOURS TOPICAL PATCH TD SCH (09:40)
[2017-08-09] MEDS: RANITIDINE HCL 150 MG TABLET (FP) PO SCH ×2 (09:40→21:03)
[2017-08-09] MEDS: ASPIRIN 81 MG CHEWABLE TABLETS PO SCH (09:40)
[2017-08-09] MEDS: THIAMINE HCL 100 MG TABLET (FP) PO SCH (21:02)
[2017-08-09] MEDS: TAMSULOSIN HCL 0.4 MG CAP.ER.24H (FP) PO SCH (21:03)
[2017-08-09] MEDS: MIRTAZAPINE 15 MG TABLET (FP) PO SCH (21:03)
[2017-08-10] MEDS: MENTHOL/PHENOL 1 EACH UD MM SCH ×6 (00:30→21:05)
[2017-08-10] MEDS ORDERED: METHADONE HCL 10 MG TABLET ONE (03:53)
[2017-08-10] MEDS ORDERED: METHADONE HCL 40 MG DISPERSABLE TABLET ONE (03:54)
[2017-08-10] MEDS: CLOTRIMAZOLE 10 MG TROCHE (FP) PO SCH ×5 (05:53→21:05)
[2017-08-10] MEDS: GABAPENTIN 300 MG CAPSULE (FP) PO SCH ×3 (05:53→21:05)
[2017-08-10] MEDS: METHADONE 40 MG, METHADONE 30 MG PO SCH (05:53)
[2017-08-10] MEDS: BACLOFEN 10 MG TABLET (FP) PO SCH ×3 (05:53→21:04)
[2017-08-10] MEDS: ACETAMINOPHEN 325 MG TABLET (FP) PO PRN ×3 (05:55→22:04)
[2017-08-10] MEDS: PRENATAL VITAMINS W/ FOLIC ACID TABLET (FP) PO SCH (09:37)
[2017-08-10] MEDS: ATORVASTATIN CA 40 MG TABLET (FP) PO SCH (09:37)
[2017-08-10] MEDS: NICOTINE 14 MG/24 HOURS TOPICAL PATCH TD SCH (09:37)
[2017-08-10] MEDS: RANITIDINE HCL 150 MG TABLET (FP) PO SCH ×2 (09:37→21:04)
[2017-08-10] MEDS: ASPIRIN 81 MG CHEWABLE TABLETS PO SCH (09:37)
[2017-08-10] MEDS: NAPROXEN 500 MG TABLET (FP) PO SCH ×2 (09:38→21:04)
[2017-08-10] MEDS: amLODIPine BESYLATE 5 MG TABLET (FP) PO SCH (09:38)
[2017-08-10] MEDS: MAGNESIUM HYDROX 2400MG/30ML ORAL SUSPENSION 30 ML CUP PO PRN (09:39)
--- NOTE | 2017-08-10 16:28 | PN ---
[facility] Progress Note (SOAP) Subjective: c/o cont sore throat and tongue swelling t/s neg Objective: 08/10/17 16:28 Vital Signs - 24 hr 08/10/17 08/10/17 08/10/17 00:30 03:30 07:22 Temperature 97.6 F Pulse Rate 61 Respiratory 18 18 18 Rate Blood Pressure 144/74 Laboratory Tests 07/27/17 07/28/17 07/28/17 23:00 10:40 10:40 WBC 3.6 L RBC 3.61 L Hgb 11.3 L D Hct 34.8 L D MCV 96.5 H MCH 31.4 MCHC 32.6 RDW 16.6 H Plt Count 62 L MPV 10.7 D Sodium 144 Potassium 3.8 Chloride 106 Carbon Dioxide 30 Anion Gap 8 BUN 17 Creatinine 1.1 D Creat Clearance w eGFR > 60 Random Glucose 119 H D Calcium 10.2 H Total Bilirubin 0.4 AST 21 ALT 20 Alkaline Phosphatase 83 Total Protein 7.2 Albumin 3.7 Urine Color Yellow Urine Appearance Clear Urine pH 5.0 Ur Specific [place] 1.028 Urine Protein 2+ H Urine Glucose (UA) Negative Urine Ketones Negative Urine Blood Negative Urine Nitrite Negative Urine Bilirubin Negative Urine Urobilinogen Negative Ur Leukocyte Esterase Negative Urine WBC (Auto) 1 Urine RBC (Auto) 1 Ur Epithelial Cells Rare Urine Mucus Rare RPR Titer HIV 1&2 Antibody Screen HIV P24 Antigen 07/28/17 08/04/17 10:40 07:00 WBC RBC Hgb Hct MCV MCH MCHC RDW Plt Count MPV Sodium Potassium Chloride Carbon Dioxide Anion Gap BUN Creatinine Creat Clearance w eGFR Random Glucose Calcium Total Bilirubin AST ALT Alkaline Phosphatase Total Protein Albumin Urine Color Urine Appearance Urine pH Ur Specific [place] Urine Protein Urine Glucose (UA) Urine Ketones Urine Blood Urine Nitrite Urine Bilirubin Urine Urobilinogen Ur Leukocyte Esterase Urine WBC (Auto) Urine RBC (Auto) Ur Epithelial Cells Urine Mucus RPR Titer Nonreactive HIV 1&2 Antibody Screen Negative HIV P24 Antigen Negative mild erythema throat Assessment: 08/10/17 16:28 urtia, anxiety disorder, gedrest start on hydroxyzine scheduled
[2017-08-10] MEDS: MIRTAZAPINE 15 MG TABLET (FP) PO SCH (21:03)
[2017-08-10] MEDS: TAMSULOSIN HCL 0.4 MG CAP.ER.24H (FP) PO SCH (21:04)
[2017-08-10] MEDS: THIAMINE HCL 100 MG TABLET (FP) PO SCH (21:05)
[2017-08-11] MEDS: MENTHOL/PHENOL 1 EACH UD MM SCH ×6 (00:30→21:21)
[2017-08-11] MEDS ORDERED: METHADONE HCL 40 MG DISPERSABLE TABLET ONE (04:04)
[2017-08-11] MEDS ORDERED: METHADONE HCL 10 MG TABLET ONE (04:04)
[2017-08-11] MEDS: BACLOFEN 10 MG TABLET (FP) PO SCH ×3 (05:53→21:20)
[2017-08-11] MEDS: METHADONE 40 MG, METHADONE 30 MG PO SCH (05:53)
[2017-08-11] MEDS: CLOTRIMAZOLE 10 MG TROCHE (FP) PO SCH ×5 (05:53→21:50)
[2017-08-11] MEDS: hydrOXYzine HCL 25 MG TABLET (FP) PO PRN ×3 (05:53→16:59)
[2017-08-11] MEDS: GABAPENTIN 300 MG CAPSULE (FP) PO SCH ×3 (05:53→21:20)
[2017-08-11] MEDS: PRENATAL VITAMINS W/ FOLIC ACID TABLET (FP) PO SCH (09:49)
[2017-08-11] MEDS: ATORVASTATIN CA 40 MG TABLET (FP) PO SCH (09:49)
[2017-08-11] MEDS: ASPIRIN 81 MG CHEWABLE TABLETS PO SCH (09:49)
[2017-08-11] MEDS: RANITIDINE HCL 150 MG TABLET (FP) PO SCH ×2 (09:49→21:20)
[2017-08-11] MEDS: amLODIPine BESYLATE 5 MG TABLET (FP) PO SCH (09:49)
[2017-08-11] MEDS: NAPROXEN 500 MG TABLET (FP) PO SCH ×2 (09:50→21:19)
[2017-08-11] MEDS: NICOTINE 14 MG/24 HOURS TOPICAL PATCH TD SCH (09:51)
[2017-08-11] MEDS: ACETAMINOPHEN 325 MG TABLET (FP) PO PRN ×2 (10:50→17:00)
[2017-08-11] MEDS: MIRTAZAPINE 15 MG TABLET (FP) PO SCH (21:19)
[2017-08-11] MEDS: THIAMINE HCL 100 MG TABLET (FP) PO SCH (21:20)
[2017-08-11] MEDS: TAMSULOSIN HCL 0.4 MG CAP.ER.24H (FP) PO SCH (21:20)
[2017-08-12] MEDS: MENTHOL/PHENOL 1 EACH UD MM SCH ×6 (00:30→21:16)
[2017-08-12] MEDS: hydrOXYzine HCL 25 MG TABLET (FP) PO PRN ×2 (02:35→09:37)
[2017-08-12] MEDS ORDERED: METHADONE HCL 10 MG TABLET ONE (04:02)
[2017-08-12] MEDS ORDERED: METHADONE HCL 40 MG DISPERSABLE TABLET ONE (04:03)
[2017-08-12] MEDS: GABAPENTIN 300 MG CAPSULE (FP) PO SCH ×2 (05:55→14:21)
[2017-08-12] MEDS: METHADONE 40 MG, METHADONE 30 MG PO SCH (05:55)
[2017-08-12] MEDS: CLOTRIMAZOLE 10 MG TROCHE (FP) PO SCH ×6 (05:55→22:54)
[2017-08-12] MEDS: BACLOFEN 10 MG TABLET (FP) PO SCH ×3 (05:55→21:18)
[2017-08-12] MEDS: ASPIRIN 81 MG CHEWABLE TABLETS PO SCH (09:36)
[2017-08-12] MEDS: PRENATAL VITAMINS W/ FOLIC ACID TABLET (FP) PO SCH (09:36)
[2017-08-12] MEDS: ATORVASTATIN CA 40 MG TABLET (FP) PO SCH (09:36)
[2017-08-12] MEDS: RANITIDINE HCL 150 MG TABLET (FP) PO SCH ×2 (09:37→21:18)
[2017-08-12] MEDS: amLODIPine BESYLATE 5 MG TABLET (FP) PO SCH (09:37)
[2017-08-12] MEDS: NICOTINE 14 MG/24 HOURS TOPICAL PATCH TD SCH (09:37)
[2017-08-12] MEDS: NAPROXEN 500 MG TABLET (FP) PO SCH ×2 (09:37→21:18)
[2017-08-12] MEDS: ACETAMINOPHEN 325 MG TABLET (FP) PO PRN ×2 (12:06→17:43)
--- NOTE | 2017-08-12 15:39 | PN ---
[facility] Progress Note (SOAP) Subjective: c.o cotninue sore throat and body aches witout imporvmenet, no fever rigor or chillls but tongue feels swollen Objective: 08/12/17 15:39 Vital Signs - 24 hr 08/12/17 08/12/17 08/12/17 00:30 03:30 06:33 Temperature 97.6 F Pulse Rate 61 Respiratory 18 18 18 Rate Blood Pressure 141/78 08/12/17 09:30 Temperature Pulse Rate 69 Respiratory Rate Blood Pressure 125/71 Laboratory Tests 07/27/17 07/28/17 07/28/17 23:00 10:40 10:40 WBC 3.6 L RBC 3.61 L Hgb 11.3 L D Hct 34.8 L D MCV 96.5 H MCH 31.4 MCHC 32.6 RDW 16.6 H Plt Count 62 L MPV 10.7 D Sodium 144 Potassium 3.8 Chloride 106 Carbon Dioxide 30 Anion Gap 8 BUN 17 Creatinine 1.1 D Creat Clearance w eGFR > 60 Random Glucose 119 H D Calcium 10.2 H Total Bilirubin 0.4 AST 21 ALT 20 Alkaline Phosphatase 83 Total Protein 7.2 Albumin 3.7 Urine Color Yellow Urine Appearance Clear Urine pH 5.0 Ur Specific [place] 1.028 Urine Protein 2+ H Urine Glucose (UA) Negative Urine Ketones Negative Urine Blood Negative Urine Nitrite Negative Urine Bilirubin Negative Urine Urobilinogen Negative Ur Leukocyte Esterase Negative Urine WBC (Auto) 1 Urine RBC (Auto) 1 Ur Epithelial Cells Rare Urine Mucus Rare RPR Titer HIV 1&2 Antibody Screen HIV P24 Antigen 07/28/17 08/04/17 10:40 07:00 WBC RBC Hgb Hct MCV MCH MCHC RDW Plt Count MPV Sodium Potassium Chloride Carbon Dioxide Anion Gap BUN Creatinine Creat Clearance w eGFR Random Glucose Calcium Total Bilirubin AST ALT Alkaline Phosphatase Total Protein Albumin Urine Color Urine Appearance Urine pH Ur Specific [place] Urine Protein Urine Glucose (UA) Urine Ketones Urine Blood Urine Nitrite Urine Bilirubin Urine Urobilinogen Ur Leukocyte Esterase Urine WBC (Auto) Urine RBC (Auto) Ur Epithelial Cells Urine Mucus RPR Titer Nonreactive HIV 1&2 Antibody Screen Negative HIV P24 Antigen Negative anemia Assessment: 08/12/17 15:39 tamiful,pain meds, repeat labs, check tsh, bed rest, fluids
[2017-08-12] MEDS: FERROUS SO4 325 MG TABLET (FP) PO SCH (17:41)
[2017-08-12] MEDS: THIAMINE HCL 100 MG TABLET (FP) PO SCH (21:15)
[2017-08-12] MEDS: DOCUSATE SODIUM 100 MG CAPSULE (FP) PO SCH (21:16)
[2017-08-12] MEDS: AMITRIPTYLINE HCL 25 MG TABLET (FP) PO SCH (21:18)
[2017-08-12] MEDS: TAMSULOSIN HCL 0.4 MG CAP.ER.24H (FP) PO SCH (21:18)
[2017-08-12] MEDS: GABAPENTIN 400 MG CAPSULE (FP) PO SCH (21:18)
[2017-08-12] MEDS: MIRTAZAPINE 15 MG TABLET (FP) PO SCH (21:19)
[2017-08-12] MEDS: OSELTAMIVIR PHOSPHATE 30 MG CAPSULE PO SCH (22:50)
[2017-08-13] MEDS: MENTHOL/PHENOL 1 EACH UD MM SCH ×6 (00:58→20:05)
[2017-08-13] MEDS ORDERED: METHADONE HCL 10 MG TABLET ONE (04:02)
[2017-08-13] MEDS ORDERED: METHADONE HCL 40 MG DISPERSABLE TABLET ONE (04:03)
[2017-08-13] MEDS: CLOTRIMAZOLE 10 MG TROCHE (FP) PO SCH ×5 (06:05→21:19)
[2017-08-13] MEDS: GABAPENTIN 400 MG CAPSULE (FP) PO SCH ×3 (06:06→21:17)
[2017-08-13] MEDS: BACLOFEN 10 MG TABLET (FP) PO SCH ×3 (06:06→21:17)
[2017-08-13] MEDS: METHADONE 40 MG, METHADONE 30 MG PO SCH (06:07)
[2017-08-13] MEDS: FERROUS SO4 325 MG TABLET (FP) PO SCH ×3 (07:24→17:04)
[2017-08-13] MEDS: ATORVASTATIN CA 40 MG TABLET (FP) PO SCH (09:40)
[2017-08-13] MEDS: PRENATAL VITAMINS W/ FOLIC ACID TABLET (FP) PO SCH (09:40)
[2017-08-13] MEDS: RANITIDINE HCL 150 MG TABLET (FP) PO SCH ×2 (09:40→21:17)
[2017-08-13] MEDS: ASPIRIN 81 MG CHEWABLE TABLETS PO SCH (09:40)
[2017-08-13] MEDS: OSELTAMIVIR PHOSPHATE 30 MG CAPSULE PO SCH ×2 (09:40→22:07)
[2017-08-13] MEDS: amLODIPine BESYLATE 5 MG TABLET (FP) PO SCH (09:42)
[2017-08-13] MEDS: NICOTINE 14 MG/24 HOURS TOPICAL PATCH TD SCH (09:42)
[2017-08-13] MEDS: NAPROXEN 500 MG TABLET (FP) PO SCH ×2 (09:45→21:17)
[2017-08-13 10:06] LABS: BASO % 0.5 % (0-2.0); EOS % 2.5 % (0-4.5); HEMATOCRIT 32.6 % (35.4-49); HEMOGLOBIN 10.5 GM/dL (11.7-16.9); MCH 31.6 pg (25.7-33.7); MCHC 32.4 g/dl (32.0-35.9); MEAN CELL VOLUME 97.8 fl (80-96); MEAN PLT VOLUME 9.5 fl (7.5-11.1); MONO % 13.8 % (3.8-10.2); NEUT % 54.2 % (42.8-82.8); PLATELET COUNT 122 K/MM3 (134-434); RBC 3.33 M/mm3 (4.00-5.60); RDW 15.9 % (11.9-15.9); WHITE BLOOD COUNT 4.1 K/mm3 (4.0-10.0)
[2017-08-13 10:07] LABS: CHLORIDE 105 mmol/L (98-107); POTASSIUM 4.4 mmol/L (3.5-5.1); SODIUM 140 mmol/L (136-145)
--- NOTE | 2017-08-13 10:25 | PN ---
Progress Note (short form) - Note Progress Note: 67 yr old man c/o dysuria and "swollen tongue" for several days without precipitating factors. says he has been having a burning pain with food. denies hematuria, pyuria, urinary hesitation, vomiting/nausea, choking while eat , coughing while eating, drooling, trouble breathing. PE HEENT: NC/AT, no sinus tenderness, no LAD, no pharyngeal erythema, no exudate, no nuchal rigidity, no bruits, no thyromegaly, no thrush, no oral lesions, no uvula deviation/enlargement. tongue without swelling, fits appropriately in mouth with adequate surface papillea, no angular cheilitis CV: S1, s2, no murmurs Lungs: CTAB ABd: soft, nt/nd ext: no edema strep test 08/08 negative, pt is afebrile, no oral/heent findings on physical exam, low suspicion for strep throat/allergic reaction Plan; possible viral syndrome vs esophagitis continue magic mouth, zantac(for acid reflux) and tamiflu(08/12-08/17, for possible viral syndrome) and monitor for any worsening of swallowing symptoms. u/a to assess for dysuria, suspicious for UTI. discussed with Dr. Delatorre Problem List - Problems (1) Nicotine dependence Code(s): F17.200 - NICOTINE DEPENDENCE, UNSPECIFIED, UNCOMPLICATED Qualifiers: Nicotine product type: cigarettes Substance use status: in withdrawal Qualified Code(s): F17.213 - Nicotine dependence, cigarettes, with withdrawal (2) Opioid dependence on agonist therapy Code(s): F11.20 - OPIOID DEPENDENCE, UNCOMPLICATED (3) Sore throat (viral) Code(s): J02.9 - ACUTE PHARYNGITIS, UNSPECIFIED (4) GERD (gastroesophageal reflux disease) Code(s): K21.9 - GASTRO-ESOPHAGEAL REFLUX DISEASE WITHOUT ESOPHAGITIS Qualifiers: Esophagitis presence: without esophagitis Qualified Code(s): K21.9 - Gastro -esophageal reflux disease without esophagitis (5) Hypertension Code(s): I10 - ESSENTIAL (PRIMARY) HYPERTENSION Qualifiers: Hypertension type: essential hypertension Qualified Code(s): I10 - Essential (primary) hypertension (6) Heroin dependence Code(s): F11.20 - OPIOID DEPENDENCE, UNCOMPLICATED
[2017-08-13 10:27] LABS: ALBUMIN 3.6 g/dl (3.4-5.0); ALK PHOS 83 U/L (45-117); ANION GAP 6 (8-16); BILIRUBIN,TOTAL 0.8 mg/dL (0.2-1.0); BLOOD UREA NITROGEN 23 mg/dL (7-18); CALCIUM 9.7 mg/dL (8.5-10.1); CO2 29 mmol/L (21-32); GLUCOSE,RANDOM 128 mg/dL (74-106); SGOT/AST 17 U/L (15-37); SGPT/ALT 23 U/L (12-78)
[2017-08-13] MEDS: ACETAMINOPHEN 325 MG TABLET (FP) PO PRN ×2 (11:15→22:06)
[2017-08-13] MEDS: MAGNESIUM HYDROX 2400MG/30ML ORAL SUSPENSION 30 ML CUP PO PRN (12:41)
[2017-08-13 15:07] LABS: URINE APPEARANCE CLEAR; URINE BILIRUBIN NEGATIVE (NEGATIVE); URINE BLOOD NEGATIVE (NEGATIVE); URINE COLOR YELLOW; URINE GLUCOSE (UA) NEGATIVE (NEGATIVE); URINE KETONE NEGATIVE (NEGATIVE); URINE LEUK ESTERASE NEGATIVE (NEGATIVE); URINE NITRITE NEGATIVE (NEGATIVE); URINE UROBILINOGEN NEGATIVE mg/dL (0.2-1.0)
[2017-08-13 15:39] LABS: URINE PROTEIN 1+ (NEGATIVE)
[2017-08-13 15:54] LABS: URINE MUCUS RARE
[2017-08-13] MEDS: DOCUSATE SODIUM 100 MG CAPSULE (FP) PO SCH (21:16)
[2017-08-13] MEDS: THIAMINE HCL 100 MG TABLET (FP) PO SCH (21:17)
[2017-08-13] MEDS: AMITRIPTYLINE HCL 25 MG TABLET (FP) PO SCH (21:17)
[2017-08-13] MEDS: TAMSULOSIN HCL 0.4 MG CAP.ER.24H (FP) PO SCH (21:17)
[2017-08-13] MEDS: MIRTAZAPINE 15 MG TABLET (FP) PO SCH (21:19)
[2017-08-14] MEDS: MENTHOL/PHENOL 1 EACH UD MM SCH ×6 (00:30→21:56)
[2017-08-14] MEDS ORDERED: METHADONE HCL 40 MG DISPERSABLE TABLET ONE (03:57)
[2017-08-14] MEDS ORDERED: METHADONE HCL 10 MG TABLET ONE (03:57)
[2017-08-14] MEDS: BACLOFEN 10 MG TABLET (FP) PO SCH ×3 (06:20→21:54)
[2017-08-14] MEDS: METHADONE 40 MG, METHADONE 30 MG PO SCH (06:20)
[2017-08-14] MEDS: GABAPENTIN 400 MG CAPSULE (FP) PO SCH ×3 (06:20→21:53)
[2017-08-14] MEDS: CLOTRIMAZOLE 10 MG TROCHE (FP) PO SCH ×5 (06:20→21:53)
[2017-08-14] MEDS: FERROUS SO4 325 MG TABLET (FP) PO SCH ×3 (07:27→17:04)
[2017-08-14] MEDS: amLODIPine BESYLATE 5 MG TABLET (FP) PO SCH (09:52)
[2017-08-14] MEDS: ATORVASTATIN CA 40 MG TABLET (FP) PO SCH (09:52)
[2017-08-14] MEDS: NAPROXEN 500 MG TABLET (FP) PO SCH ×2 (09:52→21:54)
[2017-08-14] MEDS: RANITIDINE HCL 150 MG TABLET (FP) PO SCH ×2 (09:52→21:54)
[2017-08-14] MEDS: OSELTAMIVIR PHOSPHATE 30 MG CAPSULE PO SCH ×2 (09:52→21:54)
[2017-08-14] MEDS: ASPIRIN 81 MG CHEWABLE TABLETS PO SCH (09:52)
[2017-08-14] MEDS: PRENATAL VITAMINS W/ FOLIC ACID TABLET (FP) PO SCH (09:52)
[2017-08-14] MEDS: NICOTINE 14 MG/24 HOURS TOPICAL PATCH TD SCH (09:53)
[2017-08-14] MEDS: MAGNESIUM HYDROX 2400MG/30ML ORAL SUSPENSION 30 ML CUP PO PRN (09:54)
[2017-08-14] MEDS: ACETAMINOPHEN 325 MG TABLET (FP) PO PRN ×2 (12:03→17:04)
[2017-08-14] MEDS: DOCUSATE SODIUM 100 MG CAPSULE (FP) PO SCH (21:54)
[2017-08-14] MEDS: AMITRIPTYLINE HCL 25 MG TABLET (FP) PO SCH (21:54)
[2017-08-14] MEDS: MIRTAZAPINE 15 MG TABLET (FP) PO SCH (21:54)
[2017-08-14] MEDS: TAMSULOSIN HCL 0.4 MG CAP.ER.24H (FP) PO SCH (21:54)
[2017-08-14] MEDS: THIAMINE HCL 100 MG TABLET (FP) PO SCH (21:57)
[2017-08-15] MEDS: MENTHOL/PHENOL 1 EACH UD MM SCH ×6 (00:30→22:26)
[2017-08-15] MEDS ORDERED: METHADONE HCL 10 MG TABLET ONE (03:59)
[2017-08-15] MEDS ORDERED: METHADONE HCL 40 MG DISPERSABLE TABLET ONE (04:00)
[2017-08-15] MEDS: CLOTRIMAZOLE 10 MG TROCHE (FP) PO SCH ×5 (06:21→21:07)
[2017-08-15] MEDS: BACLOFEN 10 MG TABLET (FP) PO SCH ×3 (06:21→21:06)
[2017-08-15] MEDS: GABAPENTIN 400 MG CAPSULE (FP) PO SCH ×3 (06:21→21:06)
[2017-08-15] MEDS: METHADONE 40 MG, METHADONE 30 MG PO SCH (06:22)
[2017-08-15] MEDS: FERROUS SO4 325 MG TABLET (FP) PO SCH ×3 (07:13→17:11)
[2017-08-15] MEDS: ATORVASTATIN CA 40 MG TABLET (FP) PO SCH (09:22)
[2017-08-15] MEDS: NICOTINE 14 MG/24 HOURS TOPICAL PATCH TD SCH (09:22)
[2017-08-15] MEDS: amLODIPine BESYLATE 5 MG TABLET (FP) PO SCH (09:22)
[2017-08-15] MEDS: NAPROXEN 500 MG TABLET (FP) PO SCH ×2 (09:22→21:05)
[2017-08-15] MEDS: RANITIDINE HCL 150 MG TABLET (FP) PO SCH ×2 (09:23→21:06)
[2017-08-15] MEDS: PRENATAL VITAMINS W/ FOLIC ACID TABLET (FP) PO SCH (09:23)
[2017-08-15] MEDS: ASPIRIN 81 MG CHEWABLE TABLETS PO SCH (09:23)
[2017-08-15] MEDS: OSELTAMIVIR PHOSPHATE 30 MG CAPSULE PO SCH ×2 (09:23→21:08)
[2017-08-15] MEDS: MAGNESIUM HYDROX 2400MG/30ML ORAL SUSPENSION 30 ML CUP PO PRN (09:24)
[2017-08-15] MEDS: ACETAMINOPHEN 325 MG TABLET (FP) PO PRN ×3 (11:55→22:28)
[2017-08-15] MEDS: DOCUSATE SODIUM 100 MG CAPSULE (FP) PO SCH (21:05)
[2017-08-15] MEDS: THIAMINE HCL 100 MG TABLET (FP) PO SCH (21:05)
[2017-08-15] MEDS: AMITRIPTYLINE HCL 25 MG TABLET (FP) PO SCH (21:06)
[2017-08-15] MEDS: MIRTAZAPINE 15 MG TABLET (FP) PO SCH (21:06)
[2017-08-15] MEDS: TAMSULOSIN HCL 0.4 MG CAP.ER.24H (FP) PO SCH (21:06)
[2017-08-16] MEDS: MENTHOL/PHENOL 1 EACH UD MM SCH ×6 (00:30→21:50)
[2017-08-16] MEDS ORDERED: METHADONE HCL 10 MG TABLET ONE (04:10)
[2017-08-16] MEDS ORDERED: METHADONE HCL 40 MG DISPERSABLE TABLET ONE (04:11)
[2017-08-16] MEDS: METHADONE 40 MG, METHADONE 30 MG PO SCH (05:49)
[2017-08-16] MEDS: GABAPENTIN 400 MG CAPSULE (FP) PO SCH ×3 (05:49→21:46)
[2017-08-16] MEDS: CLOTRIMAZOLE 10 MG TROCHE (FP) PO SCH ×5 (05:49→21:45)
[2017-08-16] MEDS: BACLOFEN 10 MG TABLET (FP) PO SCH ×3 (05:49→21:46)
[2017-08-16] MEDS: FERROUS SO4 325 MG TABLET (FP) PO SCH ×3 (07:08→17:11)
[2017-08-16] MEDS: PRENATAL VITAMINS W/ FOLIC ACID TABLET (FP) PO SCH (09:34)
[2017-08-16] MEDS: ASPIRIN 81 MG CHEWABLE TABLETS PO SCH (09:35)
[2017-08-16] MEDS: ATORVASTATIN CA 40 MG TABLET (FP) PO SCH (09:35)
[2017-08-16] MEDS: NAPROXEN 500 MG TABLET (FP) PO SCH ×2 (09:35→21:45)
[2017-08-16] MEDS: NICOTINE 14 MG/24 HOURS TOPICAL PATCH TD SCH (09:35)
[2017-08-16] MEDS: RANITIDINE HCL 150 MG TABLET (FP) PO SCH ×2 (09:35→21:46)
[2017-08-16] MEDS: amLODIPine BESYLATE 5 MG TABLET (FP) PO SCH (09:35)
[2017-08-16] MEDS: OSELTAMIVIR PHOSPHATE 30 MG CAPSULE PO SCH ×2 (09:36→21:49)
[2017-08-16] MEDS: ACETAMINOPHEN 325 MG TABLET (FP) PO PRN ×3 (12:44→21:45)
[2017-08-16] MEDS: THIAMINE HCL 100 MG TABLET (FP) PO SCH (21:45)
[2017-08-16] MEDS: TAMSULOSIN HCL 0.4 MG CAP.ER.24H (FP) PO SCH (21:45)
[2017-08-16] MEDS: DOCUSATE SODIUM 100 MG CAPSULE (FP) PO SCH (21:45)
[2017-08-16] MEDS: AMITRIPTYLINE HCL 25 MG TABLET (FP) PO SCH (21:46)
[2017-08-16] MEDS: MIRTAZAPINE 15 MG TABLET (FP) PO SCH (21:46)
[2017-08-17] MEDS: MENTHOL/PHENOL 1 EACH UD MM SCH ×6 (00:30→21:24)
[2017-08-17] MEDS ORDERED: METHADONE HCL 40 MG DISPERSABLE TABLET ONE (04:08)
[2017-08-17] MEDS ORDERED: METHADONE HCL 10 MG TABLET ONE (04:08)
[2017-08-17] MEDS ORDERED: METHADONE 40 MG, METHADONE 30 MG PO SCH (06:00)
[2017-08-17] MEDS: GABAPENTIN 400 MG CAPSULE (FP) PO SCH ×3 (06:11→21:18)
[2017-08-17] MEDS: METHADONE 40 MG, METHADONE 30 MG PO SCH (06:12)
[2017-08-17] MEDS: CLOTRIMAZOLE 10 MG TROCHE (FP) PO SCH ×5 (06:17→22:24)
[2017-08-17] MEDS: FERROUS SO4 325 MG TABLET (FP) PO SCH ×3 (07:09→18:15)
[2017-08-17] MEDS: BACLOFEN 10 MG TABLET (FP) PO SCH ×3 (07:21→21:19)
[2017-08-17] MEDS: NAPROXEN 500 MG TABLET (FP) PO SCH ×2 (09:41→21:19)
[2017-08-17] MEDS: amLODIPine BESYLATE 5 MG TABLET (FP) PO SCH (09:41)
[2017-08-17] MEDS: ATORVASTATIN CA 40 MG TABLET (FP) PO SCH (09:41)
[2017-08-17] MEDS: OSELTAMIVIR PHOSPHATE 30 MG CAPSULE PO SCH (09:41)
[2017-08-17] MEDS: ASPIRIN 81 MG CHEWABLE TABLETS PO SCH (09:41)
[2017-08-17] MEDS: RANITIDINE HCL 150 MG TABLET (FP) PO SCH ×2 (09:41→21:19)
[2017-08-17] MEDS: NICOTINE 14 MG/24 HOURS TOPICAL PATCH TD SCH (09:41)
[2017-08-17] MEDS: PRENATAL VITAMINS W/ FOLIC ACID TABLET (FP) PO SCH (09:42)
[2017-08-17] MEDS: ACETAMINOPHEN 325 MG TABLET (FP) PO PRN (11:59)
[2017-08-17] MEDS: DOCUSATE SODIUM 100 MG CAPSULE (FP) PO SCH (21:18)
[2017-08-17] MEDS: THIAMINE HCL 100 MG TABLET (FP) PO SCH (21:18)
[2017-08-17] MEDS: MIRTAZAPINE 15 MG TABLET (FP) PO SCH (21:19)
[2017-08-17] MEDS: TAMSULOSIN HCL 0.4 MG CAP.ER.24H (FP) PO SCH (21:19)
[2017-08-17] MEDS: AMITRIPTYLINE HCL 25 MG TABLET (FP) PO SCH (21:19)
[2017-08-18] MEDS: MENTHOL/PHENOL 1 EACH UD MM SCH ×6 (00:20→21:11)
[2017-08-18] MEDS ORDERED: METHADONE HCL 40 MG DISPERSABLE TABLET ONE (05:36)
[2017-08-18] MEDS ORDERED: METHADONE HCL 10 MG TABLET ONE (05:36)
[2017-08-18] MEDS: METHADONE 40 MG, METHADONE 30 MG PO SCH (05:39)
[2017-08-18] MEDS: BACLOFEN 10 MG TABLET (FP) PO SCH ×3 (05:39→21:10)
[2017-08-18] MEDS: GABAPENTIN 400 MG CAPSULE (FP) PO SCH ×3 (05:39→21:08)
[2017-08-18] MEDS: CLOTRIMAZOLE 10 MG TROCHE (FP) PO SCH ×5 (05:43→21:08)
[2017-08-18] MEDS: FERROUS SO4 325 MG TABLET (FP) PO SCH ×3 (07:39→16:56)
[2017-08-18] MEDS: NICOTINE 14 MG/24 HOURS TOPICAL PATCH TD SCH (09:32)
[2017-08-18] MEDS: NAPROXEN 500 MG TABLET (FP) PO SCH ×2 (09:32→21:10)
[2017-08-18] MEDS: PRENATAL VITAMINS W/ FOLIC ACID TABLET (FP) PO SCH (09:32)
[2017-08-18] MEDS: amLODIPine BESYLATE 5 MG TABLET (FP) PO SCH (09:32)
[2017-08-18] MEDS: RANITIDINE HCL 150 MG TABLET (FP) PO SCH ×2 (09:32→21:10)
[2017-08-18] MEDS: ATORVASTATIN CA 40 MG TABLET (FP) PO SCH (09:32)
[2017-08-18] MEDS: ASPIRIN 81 MG CHEWABLE TABLETS PO SCH (09:32)
[2017-08-18] MEDS: ACETAMINOPHEN 325 MG TABLET (FP) PO PRN ×3 (10:58→21:09)
[2017-08-18] MEDS: DOCUSATE SODIUM 100 MG CAPSULE (FP) PO SCH (21:08)
[2017-08-18] MEDS: MIRTAZAPINE 15 MG TABLET (FP) PO SCH (21:08)
[2017-08-18] MEDS: THIAMINE HCL 100 MG TABLET (FP) PO SCH (21:08)
[2017-08-18] MEDS: AMITRIPTYLINE HCL 25 MG TABLET (FP) PO SCH (21:09)
[2017-08-18] MEDS: hydrOXYzine HCL 25 MG TABLET (FP) PO PRN (21:10)
[2017-08-18] MEDS: TAMSULOSIN HCL 0.4 MG CAP.ER.24H (FP) PO SCH (21:10)
[2017-08-19] MEDS: MENTHOL/PHENOL 1 EACH UD MM SCH ×6 (00:09→21:11)
[2017-08-19] MEDS ORDERED: METHADONE HCL 40 MG DISPERSABLE TABLET ONE (04:48)
[2017-08-19] MEDS ORDERED: METHADONE HCL 10 MG TABLET ONE (04:48)
[2017-08-19] MEDS: BACLOFEN 10 MG TABLET (FP) PO SCH ×3 (06:23→21:07)
[2017-08-19] MEDS: GABAPENTIN 400 MG CAPSULE (FP) PO SCH ×3 (06:23→21:07)
[2017-08-19] MEDS: amLODIPine BESYLATE 5 MG TABLET (FP) PO SCH ×2 (06:23→09:56)
[2017-08-19] MEDS: METHADONE 40 MG, METHADONE 30 MG PO SCH (06:24)
[2017-08-19] MEDS: CLOTRIMAZOLE 10 MG TROCHE (FP) PO SCH ×5 (06:26→21:09)
[2017-08-19] MEDS: FERROUS SO4 325 MG TABLET (FP) PO SCH ×3 (07:19→17:06)
[2017-08-19] MEDS: PRENATAL VITAMINS W/ FOLIC ACID TABLET (FP) PO SCH (09:53)
[2017-08-19] MEDS: NICOTINE 14 MG/24 HOURS TOPICAL PATCH TD SCH (09:54)
[2017-08-19] MEDS: ASPIRIN 81 MG CHEWABLE TABLETS PO SCH (09:54)
[2017-08-19] MEDS: ATORVASTATIN CA 40 MG TABLET (FP) PO SCH (09:54)
[2017-08-19] MEDS: NAPROXEN 500 MG TABLET (FP) PO SCH ×2 (09:54→21:07)
[2017-08-19] MEDS: RANITIDINE HCL 150 MG TABLET (FP) PO SCH ×2 (09:54→21:07)
[2017-08-19] MEDS: ACETAMINOPHEN 325 MG TABLET (FP) PO PRN ×3 (12:47→21:08)
[2017-08-19] MEDS: TAMSULOSIN HCL 0.4 MG CAP.ER.24H (FP) PO SCH (21:07)
[2017-08-19] MEDS: THIAMINE HCL 100 MG TABLET (FP) PO SCH (21:07)
[2017-08-19] MEDS: AMITRIPTYLINE HCL 25 MG TABLET (FP) PO SCH (21:08)
[2017-08-19] MEDS: MIRTAZAPINE 15 MG TABLET (FP) PO SCH (21:08)
[2017-08-19] MEDS: DOCUSATE SODIUM 100 MG CAPSULE (FP) PO SCH (21:09)
[2017-08-19] MEDS: hydrOXYzine HCL 25 MG TABLET (FP) PO PRN (22:29)
[2017-08-20] MEDS ORDERED: METHADONE HCL 10 MG TABLET ONE (02:28)
[2017-08-20] MEDS ORDERED: METHADONE HCL 40 MG DISPERSABLE TABLET ONE (02:29)
[2017-08-20] MEDS ORDERED: PT OWN MED DRAWER 7, Y5N ONE (02:46)
[2017-08-20] MEDS: METHADONE 40 MG, METHADONE 30 MG PO SCH (06:08)
[2017-08-20] MEDS: BACLOFEN 10 MG TABLET (FP) PO SCH ×3 (06:08→21:10)
[2017-08-20] MEDS: GABAPENTIN 400 MG CAPSULE (FP) PO SCH ×3 (06:08→21:09)
[2017-08-20] MEDS: MENTHOL/PHENOL 1 EACH UD MM SCH ×6 (06:13→21:12)
[2017-08-20] MEDS: CLOTRIMAZOLE 10 MG TROCHE (FP) PO SCH ×5 (06:53→21:12)
[2017-08-20] MEDS: FERROUS SO4 325 MG TABLET (FP) PO SCH ×3 (07:09→17:46)
[2017-08-20] MEDS: amLODIPine BESYLATE 5 MG TABLET (FP) PO SCH (09:29)
[2017-08-20] MEDS: NICOTINE 14 MG/24 HOURS TOPICAL PATCH TD SCH (09:29)
[2017-08-20] MEDS: ATORVASTATIN CA 40 MG TABLET (FP) PO SCH (09:29)
[2017-08-20] MEDS: RANITIDINE HCL 150 MG TABLET (FP) PO SCH ×2 (09:29→21:10)
[2017-08-20] MEDS: ASPIRIN 81 MG CHEWABLE TABLETS PO SCH (09:29)
[2017-08-20] MEDS: PRENATAL VITAMINS W/ FOLIC ACID TABLET (FP) PO SCH (09:29)
[2017-08-20] MEDS: NAPROXEN 500 MG TABLET (FP) PO SCH ×2 (09:29→21:09)
[2017-08-20] MEDS: ACETAMINOPHEN 325 MG TABLET (FP) PO PRN ×2 (13:48→21:10)
[2017-08-20] MEDS: THIAMINE HCL 100 MG TABLET (FP) PO SCH (21:09)
[2017-08-20] MEDS: TAMSULOSIN HCL 0.4 MG CAP.ER.24H (FP) PO SCH (21:09)
[2017-08-20] MEDS: MIRTAZAPINE 15 MG TABLET (FP) PO SCH (21:09)
[2017-08-20] MEDS: hydrOXYzine HCL 25 MG TABLET (FP) PO PRN (21:10)
[2017-08-20] MEDS: DOCUSATE SODIUM 100 MG CAPSULE (FP) PO SCH (21:10)
[2017-08-20] MEDS: AMITRIPTYLINE HCL 25 MG TABLET (FP) PO SCH (21:10)
[2017-08-21] MEDS: MENTHOL/PHENOL 1 EACH UD MM SCH ×6 (00:09→21:04)
[2017-08-21] MEDS ORDERED: METHADONE HCL 10 MG TABLET ONE (03:07)
[2017-08-21] MEDS ORDERED: METHADONE HCL 40 MG DISPERSABLE TABLET ONE (03:07)
[2017-08-21] MEDS: METHADONE 40 MG, METHADONE 30 MG PO SCH (06:12)
[2017-08-21] MEDS: BACLOFEN 10 MG TABLET (FP) PO SCH ×3 (06:13→21:02)
[2017-08-21] MEDS: GABAPENTIN 400 MG CAPSULE (FP) PO SCH ×3 (06:14→21:03)
[2017-08-21] MEDS: CLOTRIMAZOLE 10 MG TROCHE (FP) PO SCH ×5 (06:14→21:04)
[2017-08-21] MEDS: FERROUS SO4 325 MG TABLET (FP) PO SCH ×3 (07:12→17:02)
[2017-08-21] MEDS: ASPIRIN 81 MG CHEWABLE TABLETS PO SCH (09:37)
[2017-08-21] MEDS: NAPROXEN 500 MG TABLET (FP) PO SCH ×2 (09:37→21:02)
[2017-08-21] MEDS: amLODIPine BESYLATE 5 MG TABLET (FP) PO SCH (09:37)
[2017-08-21] MEDS: PRENATAL VITAMINS W/ FOLIC ACID TABLET (FP) PO SCH (09:37)
[2017-08-21] MEDS: NICOTINE 14 MG/24 HOURS TOPICAL PATCH TD SCH (09:37)
[2017-08-21] MEDS: ATORVASTATIN CA 40 MG TABLET (FP) PO SCH (09:38)
[2017-08-21] MEDS: RANITIDINE HCL 150 MG TABLET (FP) PO SCH ×2 (09:38→21:02)
[2017-08-21] MEDS: ACETAMINOPHEN 325 MG TABLET (FP) PO PRN ×2 (13:22→17:07)
[2017-08-21] MEDS: THIAMINE HCL 100 MG TABLET (FP) PO SCH (21:01)
[2017-08-21] MEDS: DOCUSATE SODIUM 100 MG CAPSULE (FP) PO SCH (21:01)
[2017-08-21] MEDS: MIRTAZAPINE 15 MG TABLET (FP) PO SCH (21:02)
[2017-08-21] MEDS: TAMSULOSIN HCL 0.4 MG CAP.ER.24H (FP) PO SCH (21:03)
[2017-08-21] MEDS: AMITRIPTYLINE HCL 25 MG TABLET (FP) PO SCH (21:03)
[2017-08-22] MEDS: MENTHOL/PHENOL 1 EACH UD MM SCH ×6 (00:35→21:13)
[2017-08-22] MEDS ORDERED: METHADONE HCL 40 MG DISPERSABLE TABLET ONE (05:08)
[2017-08-22] MEDS ORDERED: METHADONE HCL 10 MG TABLET ONE (05:08)
[2017-08-22] MEDS: amLODIPine BESYLATE 5 MG TABLET (FP) PO SCH ×2 (06:07→09:21)
[2017-08-22] MEDS: ACETAMINOPHEN 325 MG TABLET (FP) PO PRN ×3 (06:07→16:18)
[2017-08-22] MEDS: METHADONE 40 MG, METHADONE 30 MG PO SCH (06:08)
[2017-08-22] MEDS: GABAPENTIN 400 MG CAPSULE (FP) PO SCH ×3 (06:08→21:10)
[2017-08-22] MEDS: BACLOFEN 10 MG TABLET (FP) PO SCH ×3 (06:08→21:10)
[2017-08-22] MEDS: CLOTRIMAZOLE 10 MG TROCHE (FP) PO SCH ×5 (06:26→21:13)
[2017-08-22] MEDS: FERROUS SO4 325 MG TABLET (FP) PO SCH ×3 (07:47→17:47)
[2017-08-22] MEDS: NICOTINE 14 MG/24 HOURS TOPICAL PATCH TD SCH (09:20)
[2017-08-22] MEDS: RANITIDINE HCL 150 MG TABLET (FP) PO SCH ×2 (09:20→21:10)
[2017-08-22] MEDS: ATORVASTATIN CA 40 MG TABLET (FP) PO SCH (09:20)
[2017-08-22] MEDS: ASPIRIN 81 MG CHEWABLE TABLETS PO SCH (09:20)
[2017-08-22] MEDS: NAPROXEN 500 MG TABLET (FP) PO SCH ×2 (09:20→21:10)
[2017-08-22] MEDS: PRENATAL VITAMINS W/ FOLIC ACID TABLET (FP) PO SCH (09:20)
[2017-08-22] MEDS: diphenhydrAMINE HCL 25 MG CAPSULE (FP) PO PRN (21:09)
[2017-08-22] MEDS: DOCUSATE SODIUM 100 MG CAPSULE (FP) PO SCH (21:10)
[2017-08-22] MEDS: MIRTAZAPINE 15 MG TABLET (FP) PO SCH (21:10)
[2017-08-22] MEDS: TAMSULOSIN HCL 0.4 MG CAP.ER.24H (FP) PO SCH (21:10)
[2017-08-22] MEDS: THIAMINE HCL 100 MG TABLET (FP) PO SCH (21:10)
[2017-08-22] MEDS: AMITRIPTYLINE HCL 25 MG TABLET (FP) PO SCH (21:10)
[2017-08-23] MEDS: MENTHOL/PHENOL 1 EACH UD MM SCH ×6 (00:05→21:01)
[2017-08-23] MEDS ORDERED: METHADONE HCL 40 MG DISPERSABLE TABLET ONE (04:38)
[2017-08-23] MEDS ORDERED: METHADONE HCL 10 MG TABLET ONE (04:38)
[2017-08-23] MEDS: METHADONE 40 MG, METHADONE 30 MG PO SCH (06:36)
[2017-08-23] MEDS: BACLOFEN 10 MG TABLET (FP) PO SCH ×3 (06:36→21:01)
[2017-08-23] MEDS: CLOTRIMAZOLE 10 MG TROCHE (FP) PO SCH ×5 (06:36→22:13)
[2017-08-23] MEDS: GABAPENTIN 400 MG CAPSULE (FP) PO SCH ×3 (06:36→21:01)
[2017-08-23] MEDS: FERROUS SO4 325 MG TABLET (FP) PO SCH ×3 (07:11→17:03)
[2017-08-23] MEDS: ASPIRIN 81 MG CHEWABLE TABLETS PO SCH (09:30)
[2017-08-23] MEDS: NICOTINE 14 MG/24 HOURS TOPICAL PATCH TD SCH (09:30)
[2017-08-23] MEDS: amLODIPine BESYLATE 5 MG TABLET (FP) PO SCH (09:31)
[2017-08-23] MEDS: RANITIDINE HCL 150 MG TABLET (FP) PO SCH ×2 (09:31→21:01)
[2017-08-23] MEDS: ATORVASTATIN CA 40 MG TABLET (FP) PO SCH (09:31)
[2017-08-23] MEDS: NAPROXEN 500 MG TABLET (FP) PO SCH ×2 (09:31→21:01)
[2017-08-23] MEDS: PRENATAL VITAMINS W/ FOLIC ACID TABLET (FP) PO SCH (09:31)
[2017-08-23] MEDS: ACETAMINOPHEN 325 MG TABLET (FP) PO PRN ×2 (12:57→17:03)
[2017-08-23] MEDS: MIRTAZAPINE 15 MG TABLET (FP) PO SCH (21:01)
[2017-08-23] MEDS: TAMSULOSIN HCL 0.4 MG CAP.ER.24H (FP) PO SCH (21:01)
[2017-08-23] MEDS: AMITRIPTYLINE HCL 25 MG TABLET (FP) PO SCH (21:02)
[2017-08-23] MEDS: THIAMINE HCL 100 MG TABLET (FP) PO SCH (21:02)
[2017-08-23] MEDS: DOCUSATE SODIUM 100 MG CAPSULE (FP) PO SCH (21:02)
[2017-08-24] MEDS: MENTHOL/PHENOL 1 EACH UD MM SCH ×6 (00:12→20:53)
[2017-08-24] MEDS ORDERED: METHADONE HCL 10 MG TABLET ONE (05:57)
[2017-08-24] MEDS ORDERED: METHADONE HCL 40 MG DISPERSABLE TABLET ONE (05:57)
[2017-08-24] MEDS: BACLOFEN 10 MG TABLET (FP) PO SCH (05:59)
[2017-08-24] MEDS: METHADONE 40 MG, METHADONE 30 MG PO SCH (05:59)
[2017-08-24] MEDS: CLOTRIMAZOLE 10 MG TROCHE (FP) PO SCH ×5 (06:00→21:07)
[2017-08-24] MEDS ORDERED: METHADONE HCL 10 MG TABLET PO SCH (06:00)
[2017-08-24] MEDS: GABAPENTIN 400 MG CAPSULE (FP) PO SCH (06:00)
[2017-08-24] MEDS: FERROUS SO4 325 MG TABLET (FP) PO SCH ×3 (07:24→17:03)
--- NOTE | 2017-08-24 07:27 | PN ---
[facility] Progress Note Note: MD'S NOTE: INFORMED AT ABOUT 5:30AM TO SEE THE PT. WHOSE TONGUE IS SWOLLEN FOR ABOUT 4-5 DAYS! SUB: DENIES: FEVER, SORE THROAT, SOB BUT FEELS UNCOMFORTABLE BECAUSE OF SWELLING OF THE TONGUE. MILD ONGOING ABD. DISCOMFORT+ OBJ: THE PT. IS BENTON X 3, NOT DYSPNEIC, NOT CYANOSIS, NOT IN DISTRESS AND HE IS AMBULATORY. V/S: [id number] L/E: ORAL CAVITY: TONGUE IS SWOLLEN++ NO ULCERS OR ANY EVIDENCE OF INFECTION NOTED NECK: NO REGIONAL LYMPHADENOPATHY NOTED S/E: LUNGS: VESICULAR BREATH SOUNDS, NO RALES, NO RHONCHI OR WHEEZING HEARD CVS: -JVD, NL HEART SOUNDS, NO MURMURS ABD: DISTENDED, SOFT, NT, B.S.+ IMPRESSION: SWELLING OF THE TONGUE - SEC. TO ?: MEDS. (NEURONTIN, LIPITOR, METHADONE) PLANS: :TO D/C: LIPITOR, NEURONTIN AND BECLOFEN TEMPORARILY :BENADRYL: 25 MGS. IM X 1 AND MAY REQUIRE MORE DOSES IM (WHICH MAY WORK FASTER THAN PO) 25 MGS. PO Q6H PRN :VERY CLOSE MONITORING OF ABC'S BECAUSE FURTHER SWELLING OF THE TONGUE MAY CAUSE RESP. PROBLEMS. :WILL CONSIDER TRANSFERRING TO THE ER, IN THE EVENT OF ANY RESPIRATORY ISSUES :WILL F/U: NEEDED PROVIDER: DUSTY MILLER MD
[2017-08-24] MEDS: amLODIPine BESYLATE 5 MG TABLET (FP) PO SCH (09:41)
[2017-08-24] MEDS: NICOTINE 14 MG/24 HOURS TOPICAL PATCH TD SCH (09:41)
[2017-08-24] MEDS: PRENATAL VITAMINS W/ FOLIC ACID TABLET (FP) PO SCH (09:41)
[2017-08-24] MEDS: RANITIDINE HCL 150 MG TABLET (FP) PO SCH ×2 (09:42→21:03)
[2017-08-24] MEDS: ASPIRIN 81 MG CHEWABLE TABLETS PO SCH (09:42)
[2017-08-24] MEDS: NAPROXEN 500 MG TABLET (FP) PO SCH ×2 (09:42→21:03)
[2017-08-24] MEDS: ACETAMINOPHEN 325 MG TABLET (FP) PO PRN ×3 (13:14→22:54)
--- NOTE | 2017-08-24 13:22 | PN ---
Psychiatric Progress Note Vital Signs: Vital Signs Period Temp Pulse Resp BP Sys/Nguyen Pulse Ox Last 24 Hr 98.2 F 65-66 14-18 148-156/79-83 Date of Session: 08/24/17 Chief Complaint:: Discharge Note HPI: Patient addressing Opoid Dependence comorbid with Opoid Dependence on Agonist Therapy, Nicotine Dependence, Substance-Induced Mood Disorder and Substance-induced Sleep Disorder ROS: HTN, GERD, Arthritis/chronic pain, Current Medications: Active Medications Generic Name Dose Route Start Last Admin Trade Name Freq PRN Reason Stop Dose Admin Acetaminophen 650 mg 07/27/17 20:53 08/23/17 17:03 Tylenol - PO 650 mg Q4H PRN Administration PAIN Al Hydroxide/Mg Hydroxide 30 ml 07/27/17 20:53 08/11/17 19:04 Mylanta Oral Suspension - PO 30 ml Q6H PRN Administration DYSPEPSIA Amitriptyline HCl 25 mg 08/12/17 22:00 08/23/17 21:02 Elavil - PO 25 mg HS ALEX Administration Amlodipine Besylate 5 mg 07/28/17 10:00 08/24/17 09:41 Norvasc - PO 5 mg DAILY ALEX Administration Aspirin 81 mg 07/28/17 10:00 08/24/17 09:42 Asa - PO 81 mg DAILY ALEX Administration Clotrimazole 10 mg 08/12/17 22:45 08/24/17 09:41 Mycelex Rochelle's - PO 10 mg 5XD ALEX Administration Diphenhydramine HCl 25 mg 08/22/17 21:00 08/22/17 21:09 Benadryl - PO 25 mg Q6H PRN Administration FOR ITCHING Docusate Sodium 300 mg 08/12/17 22:00 08/23/17 21:02 Colace - PO 300 mg HS ALEX Administration Eucalyptus/Menthol/Phenol/Sorbitol 1 each 08/06/17 12:30 08/24/17 08:43 Cepastat Lozenge - MM 1 each Q4H ALEX Administration Ferrous Sulfate 325 mg 08/12/17 17:30 08/24/17 07:24 Feosol - PO 325 mg TIDCM ALEX Administration Guaifenesin 10 ml 07/27/17 20:53 Robitussin Dm - PO Q6H PRN COUGH Hydroxyzine HCl 25 mg 08/10/17 16:27 08/20/17 21:10 Atarax - PO 25 mg Q6H PRN Administration FOR ITCHING Loperamide HCl 4 mg 07/27/17 20:53 Imodium - PO Q6H PRN DIARRHEA Magnesium Citrate 300 ml 07/27/17 20:53 08/08/17 10:23 Citroma - PO 300 ml Q48H PRN Administration CONSTIPATION Magnesium Hydroxide 30 ml 07/27/17 20:53 08/15/17 09:24 Milk Of Magnesia - PO 30 ml DAILY PRN Administration CONSTIPATION Methadone HCl 40 mg/ Methadone 70 mg 08/24/17 06:00 08/24/17 05:59 HCl 30 mg PO 70 mg DAILY@0600 ALEX Administration Mirtazapine 45 mg 07/28/17 22:00 08/23/17 21:01 Remeron - PO 45 mg HS ALEX Administration Naproxen 500 mg 07/31/17 14:00 08/24/17 09:42 Naprosyn - PO 500 mg BID ALEX Administration Nicotine 14 mg 07/28/17 10:00 08/24/17 09:41 Nicoderm Patch - TD 14 mg DAILY ALEX Administration Nicotine Polacrilex 2 mg 07/27/17 20:53 Nicorette Gum - BC Q2H PRN NICOTINE REPLACEMENT RX Multivit/Folic Acid/Iron 1 tab 07/28/17 10:00 08/24/17 09:41 Vitamins (Sjr) - PO 1 tab DAILY ALEX Administration Pseudoephedrine/Triprolidine 1 combo 07/27/17 20:53 Actifed - PO TID PRN NASAL CONGESTION Ranitidine HCl 150 mg 07/27/17 21:00 08/24/17 09:42 Zantac - PO 150 mg BID ALEX Administration Tamsulosin HCl 0.4 mg 07/27/17 22:00 08/23/17 21:01 Flomax - PO 0.4 mg HS ALEX Administration Thiamine HCl 100 mg 07/27/17 22:00 08/23/17 21:02 Vitamin B1 - PO 100 mg HS ALEX Administration Current Side Effect: No Lab tests ordered: Yes Lab tests reviewed: Yes Provider note:: Patient will complete this program on 08/25/17. He has met his treatment goals and will continue to address his issues in outpatient treatment at [facility] at [address] [place] [id number]. 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 He responded well to Remeron 45 mg po HS. Script for 30 days supply of medication will be electronically transmitted to [facility] at [address] [place] [id number]. He is stable for discharge on 08/25/17. Total face to face time:: 35 Mental Status Exam - Mental Status Exam Alert and Oriented to: Time, Place, Person Cognitive Function: Fair Patient Appearance: Well Groomed Mood: Hopeful, Euthymic Affect: Appropriate Patient Behavior: Cooperative Speech Pattern: Clear Voice Loudness: Normal Thought Process: Intact Thought Disorder: Not Present Hallucinations: Denies Suicidal Ideation: Denies Homicidal Ideation: Denies Insight/Judgement: Fair Sleep: Fair Appetite: Good Muscle strength/Tone: Normal Gait/Station: Normal Psychiatric Treatment Plan - Problem List (1) Opioid dependence Current Visit: Yes (2) Opioid dependence on agonist therapy Current Visit: Yes (3) Nicotine dependence Current Visit: Yes Qualifiers: Nicotine product type: cigarettes Substance use status: in withdrawal Qualified Code(s): F17.213 - Nicotine dependence, cigarettes, with withdrawal (4) Substance induced mood disorder Current Visit: Yes (5) Substance-induced sleep disorder Current Visit: Yes (6) Arthritis Current Visit: Yes (7) Chronic back pain Current Visit: Yes Qualifiers: Back pain location: low back pain Back pain laterality: bilateral Sciatica presence: without sciatica Qualified Code(s): M54.5 - Low back pain; G89.29 - Other chronic pain; G89.29 - Other chronic pain (8) GERD (gastroesophageal reflux disease) Current Visit: Yes Qualifiers: Esophagitis presence: without esophagitis Qualified Code(s): K21.9 - Gastro -esophageal reflux disease without esophagitis (9) Hypertension Current Visit: Yes Qualifiers: Hypertension type: essential hypertension Qualified Code(s): I10 - Essential (primary) hypertension Initial treatment plan: Patient will be discharged tomorrow and referred to [facility] for outpatient treatment
[2017-08-24] MEDS: DOCUSATE SODIUM 100 MG CAPSULE (FP) PO SCH (21:02)
[2017-08-24] MEDS: MIRTAZAPINE 15 MG TABLET (FP) PO SCH (21:02)
[2017-08-24] MEDS: THIAMINE HCL 100 MG TABLET (FP) PO SCH (21:02)
[2017-08-24] MEDS: TAMSULOSIN HCL 0.4 MG CAP.ER.24H (FP) PO SCH (21:03)
[2017-08-24] MEDS: AMITRIPTYLINE HCL 25 MG TABLET (FP) PO SCH (21:03)
[2017-08-24] MEDS: diphenhydrAMINE HCL 25 MG CAPSULE (FP) PO PRN (21:07)
[2017-08-25] MEDS: MENTHOL/PHENOL 1 EACH UD MM SCH ×3 (00:50→09:05)
[2017-08-25] MEDS ORDERED: METHADONE HCL 40 MG DISPERSABLE TABLET ONE (03:59)
[2017-08-25] MEDS ORDERED: METHADONE HCL 10 MG TABLET ONE (03:59)
[2017-08-25] MEDS: hydrOXYzine HCL 25 MG TABLET (FP) PO PRN (04:13)
[2017-08-25] MEDS: METHADONE 40 MG, METHADONE 30 MG PO SCH (05:51)
[2017-08-25] MEDS: CLOTRIMAZOLE 10 MG TROCHE (FP) PO SCH ×2 (05:52→09:07)
[2017-08-25 06:35] VITALS: BP 155/84; PULSE 74; TEMP 98.6
[2017-08-25] MEDS: FERROUS SO4 325 MG TABLET (FP) PO SCH (07:44)
[2017-08-25] MEDS: amLODIPine BESYLATE 5 MG TABLET (FP) PO SCH (09:05)
[2017-08-25] MEDS: PRENATAL VITAMINS W/ FOLIC ACID TABLET (FP) PO SCH (09:05)
[2017-08-25] MEDS: RANITIDINE HCL 150 MG TABLET (FP) PO SCH (09:05)
[2017-08-25] MEDS: NAPROXEN 500 MG TABLET (FP) PO SCH (09:06)
[2017-08-25] MEDS: NICOTINE 14 MG/24 HOURS TOPICAL PATCH TD SCH (09:06)
[2017-08-25] MEDS: ASPIRIN 81 MG CHEWABLE TABLETS PO SCH (09:07)
== END 2017-08-25 09:00 | disposition home or self-care (01) | DRG 895 ==
LOC: YASAS 09:46 → Y3W 20:13
PROVIDERS: ADMIT Psychiatry & Neurology Psychiatry; ATTEND Psychiatry & Neurology Psychiatry
PROC: HZ42ZZZ Group Counseling for Substance Abuse Treatment, Cognitive-Behavioral (ICD-10-PCS; principal; 2017-07-27)
DX: F11.20 Opioid dependence, uncomplicated (principal); F17.213 Nicotine dependence, cigarettes, with withdrawal; F19.282 Other psychoactive substance dependence with psychoactive substance-induced sleep disorder; F19.24 Other psychoactive substance dependence with psychoactive substance-induced mood disorder; F41.9 Anxiety disorder, unspecified; I10 Essential (primary) hypertension; E78.5 Hyperlipidemia, unspecified; K21.9 Gastro-esophageal reflux disease without esophagitis; M19.90 Unspecified osteoarthritis, unspecified site; M54.5 Low back pain; G89.29 Other chronic pain; D50.9 Iron deficiency anemia, unspecified; R30.0 Dysuria; R22.0 Localized swelling, mass and lump, head; R07.89 Other chest pain; J11.1 Influenza due to unidentified influenza virus with other respiratory manifestations; J02.9 Acute pharyngitis, unspecified; Z87.898 Personal history of other specified conditions; R26.2 Difficulty in walking, not elsewhere classified; Z99.89 Dependence on other enabling machines and devices; M62.838 Other muscle spasm
CPT/HCPCS: 36415; 71010-TC; 71020-TC; 80053; 81003; 81015; 82550; 83690; 84443; 84484; 85025; 85027; 85610; 86593; 87070; 87389; 87430; 93005; 93010; 99284-25; J0475